=== PATIENT | female | born 1950 | race Caucasian/White ===

== ENCOUNTER 2020-01-08 20:52 | Inpatient (IN) | payer MEDICARE, SELFPAY ==
--- NOTE | ~2020-01-08 | CT_ITS ---
EXAMINATION: CT brain wo con DATE: 01/08/2020 22:24 INDICATION: Loss of balance. Fall. TECHNIQUE: Computed tomography (CT) of the head was performed without intravenous contrast. The mA wa s adjusted according to patient size. Iterative reconstruction technique was employed. The dose-lengt h product was 605.33 mGy-cm. COMPARISON: Brain MRI 02/07/2010 FINDINGS: There is no intracranial hemorrhage, acute infarction, or abnormal intracranial mass lesion . The ventricles are normal in size. The orbits are normal. There is mild mucosal thickening in the e thmoid sinuses. The mastoid air cells are normal. IMPRESSION: 1. Normal brain. Reviewed, dictated and finalized at location A. IMPRESSION: 1. Normal brain.
--- NOTE | ~2020-01-08 | XR_ITS ---
EXAMINATION: XR shoulder LT min 2V DATE: 01/10/2020 17:23 INDICATION: Left shoulder pain. Fall. TECHNIQUE: 4 views of left shoulder were obtained. COMPARISON: None. FINDINGS: Bone alignment is normal. No fracture. There is mild osteoarthritis of glenohumeral joint a nd acromioclavicular joint. IMPRESSION: 1. Mild polyarticular osteoarthritis. Reviewed, dictated and finalized at location A.
--- NOTE | ~2020-01-08 | XR_ITS ---
EXAMINATION: XR hip LT min 3V w AP pelvis DATE: 01/10/2020 17:23 INDICATION: Left hip pain. Fall. TECHNIQUE: An anteroposterior view of the pelvis and 3 views of left hip were obtained. COMPARISON: None. FINDINGS: Bone alignment is normal. No fracture. There is mild osteoarthritis of the hips. There is m ild lumbar spondylosis. IMPRESSION: 1. Mild osteoarthritis of the hips. Reviewed, dictated and finalized at location A.
[2020-01-08 20:55] VITALS: BP 137/68; PULSE 66; RESP 18; TEMP 36.6; O2SAT 99
[2020-01-08 21:11] LABS: Basophils Absolute Auto 0.1 K/mm3 (0.0-0.1); Basophils Percent Auto 0.9 % (0.2-1.2); Eosinophils Absolute Auto 0.2 K/mm3 (0-0.3); Eosinophils Percent Auto 3.7 % (0-4.4); Hematocrit 35.8 % (37.0-47.0); Hemoglobin 12.2 g/dL (12.0-15.0); Immature Granulocyte Absolute 0.02 K/mm3 (0.00-0.031); Immature Granulocyte Percent A 0.3 % (0-0.5); Lymphocytes Absolute Auto 1.88 K/mm3 (0.9-3.2); Lymphocytes Percent Auto 28.8 % (18.3-44.2); Mean Corpuscular HGB Conc 34.1 g/dl (32-36); Mean Corpuscular Hemoglobin 31.4 pg (26-34); Mean Corpuscular Volume 92.3 fl (80-100); Mean Platelet Volume 11.2 fl (7.4-10.4); Monocytes Absolute Auto 0.7 K/mm3 (0.1-0.6); Monocytes Percent Auto 10.1 % (2.6-8.5); Neutrophils Absolute Auto 3.7 K/mm3 (1.3-6.7); Neutrophils Percent Auto 56.2 % (45.5-73.1); Platelet Count Result 185 k/mm3 (150-375); Red Blood Count 3.88 M/mm3 (4.2-5.4); Red Cell Distribution Width 11.9 % (11.5-14.5); White Blood Count 6.5 K/mm3 (4.5-10.0)
[2020-01-08 21:23] LABS: Alanine Aminotransferase 38 U/L (4-35); Alkaline Phosphatase 93 U/L (38-126); Aspartate Amino Transferase 98 U/L (14-36); Bilirubin,Total 0.9 mg/dL (0.2-1.3); Blood Urea Nitrogen 32 mg/dL (7-17); Calcium 9.3 mg/dL (8.4-10.2); Carbon Dioxide 25 mmol/L (22-30); Chloride 101 mmol/L (98-107); Estimated CRCL calculation 71 ml/min; Estimated Glomerular Filt Rate > 60; Glucose 84 mg/dL (65-105); Potassium 3.3 mmol/L (3.4-5.0); Sodium 136 mmol/L (137-145)
--- NOTE | 2020-01-08 21:34 | ED.FALL ---
HPI - Fall General Chief Complaint: Fall Stated Complaint: fell Time Seen by Provider: 01/08/20 21:11 History of Present Illness HPI Narrative: Patient is a 69-year-old female who presents ER status post fall. Fell down last night and was not found until early this morning because she denied get herself up. She patient denies striking her head or losing consciousness. Patient is spastic/tremulous due to her Parkinson's disease. Patient also had some hallucinations that people in her house and called police. She is currently being treated for UTI by her primary care doctor at [facility]. Unsure of the name of the medication she is on. Related Data Home Medications Medication Instructions Recorded Confirmed carbidopa-levodopa 1 tablet PO DAILY 01/08/20 01/09/20 citalopram 40 mg PO DAILY 01/08/20 01/08/20 linaclotide [Linzess] 290 mcg PO DAILY 01/08/20 01/08/20 lorazepam 0.5 mg PO TID PRN 01/08/20 01/08/20 tramadol 1 mg PO BID PRN 01/08/20 01/08/20 trazodone 50 mg PO DAILY 01/08/20 01/08/20 trihexyphenidyl 2 mg PO BID 01/08/20 01/08/20 levothyroxine 50 mcg PO DAILY 01/09/20 01/09/20 Allergies Allergy/AdvReac Type Severity Reaction Status Date / Time hydrocodone Allergy Unknown Itching Verified 01/09/20 01:38 Review of Systems Review of Systems: All systems reviewed & are unremarkable except as noted in HPI and below Constitutional: Constitutional: Denies chills, Denies fever(s) and Denies weakness ENT: Denies nasal congestion and Denies sore throat Respiratory: Respiratory: Denies cough and Denies dyspnea Gastrointestinal: Gastrointestinal: Denies abdominal pain, Denies nausea and Denies vomiting Neurologic: Denies dizziness, Denies syncope, Denies headache(s), Denies focal weakness and Denies numbness PMF Social History Social History Years smoked: 2 Smoking status: Former smoker Alcohol intake: former Substance use: never Spiritual care concerns: No Course Course Emergency Course: Admit for observation and hydration. Vital Signs Vital signs: Vital Signs Temperature 97.9 F 01/08/20 20:55 Pulse Rate 66 01/08/20 20:55 Respiratory Rate 18 07/15/20 20:55 Blood Pressure 137/68 01/08/20 20:55 Pulse Oximetry 99 01/08/20 20:55 Temperature 97.8 F 01/09/20 05:48 Pulse Rate 58 L 01/09/20 05:48 Respiratory Rate 14 01/09/20 05:48 Blood Pressure 118/58 L 01/09/20 05:48 Pulse Oximetry 97 01/09/20 01:46 MDM - Fall Lab Data Result diagrams: 01/08/20 21:05 01/08/20 21:03 Labs: Lab Results 01/08/20 01/08/20 01/08/20 Range/Units 21:03 21:03 21:05 WBC 6.5 (4.5-10.0) K/mm3 RBC 3.88 L (4.2-5.4) M/mm3 Hgb 12.2 (12.0-15.0) g/dL Hct 35.8 L (37.0-47.0) % MCV 92.3 (80-100) fl MCH 31.4 (26-34) pg MCHC 34.1 (32-36) g/dl RDW 11.9 (11.5-14.5) % Plt Count 185 (150-375) k/mm3 MPV 11.2 H (7.4-10.4) fl Immature Gran % (Auto) 0.3 (0-0.5) % Neut % (Auto) 56.2 (45.5-73.1) % Lymph % (Auto) 28.8 (18.3-44.2) % Hancock % (Auto) 10.1 H (2.6-8.5) % Eos % (Auto) 3.7 (0-4.4) % Baso % (Auto) 0.9 (0.2-1.2) % Lymph # (Auto) 1.88 (0.9-3.2) K/mm3 Hancock # (Auto) 0.7 H (0.1-0.6) K/mm3 Eos # (Auto) 0.2 (0-0.3) K/mm3 Baso # (Auto) 0.1 (0.0-0.1) K/mm3 Abs Immat Gran (auto) 0.02 (0.00-0.031) K/mm3 Absolute Neuts (auto) 3.7 (1.3-6.7) K/mm3 Absolute Nucleated RBC 0.0 (0.0-0.012) K/mm3 Nucleated RBC % 0.0 (0.0-0.2) % Sodium 136 L (137-145) mmol/L Potassium 3.3 L (3.4-5.0) mmol/L Chloride 101 (98-107) mmol/L Carbon Dioxide 25 (22-30) mmol/L BUN 32 H (7-17) mg/dL Creatinine 0.60 L (0.7-1.0) mg/dL Estim Creat Clear Calc 71 ml/min Estimated GFR > 60 (59 - ) Glucose 84 (65-105) mg/dL Calcium 9.3 (8.4-10.2) mg/dL Total Bilirubin 0.9 (0.2-1.3) mg/dL AST 98 H (14-36) U/L ALT 38 H
[2020-01-08 22:02] LABS: Creatine Kinase 2469 U/L (30-135)
[2020-01-08 22:39] VITALS: BP 136/75; PULSE 63; RESP 18; O2SAT 99
[2020-01-08] MEDS: SODIUM CHLORIDE 0.9% IV 1,000 ML 999 ML IV CONT (22:39)
[2020-01-08 23:08] LABS: Add Urine Microscopic? YES; Appearance Urine Clear (Clear); Bilirubin Urine Negative (Negative); Blood Urine Negative (Negative); Color Urine Yellow (Yellow); Glucose Urine UA Negative (Negative); Ketones Urine 1+ mg/dL (Negative); Leukocyte Esterase Ur Negative LEU/UL (Negative); Mucus Urine Few /lpf; Nitrate Urine Negative (Negative); Protein Urine 1+ mg/dL (Negative); RBC Urine 0-2 /hpf (0-2); Squamous Epithelial Cell Urine Rare /hpf (Few); WBC Urine 0-3 /hpf
[2020-01-08 23:14] LABS: Specific Grav Ur 1.033 (1.001-1.035)
--- NOTE | 2020-01-08 23:34 | PC.NURSE ---
report taken from jose alfredo foster at this time.
[2020-01-08] MEDS: IBUPROFEN IV 800 MG/200 ML 800 MG/200 ML BAG 400 MG IVPB (23:46)
[2020-01-09 00:05] VITALS: BP 118/67; PULSE 65; RESP 18; O2SAT 100
[2020-01-09 00:44] VITALS: BP 121/64; PULSE 61; RESP 18; TEMP 36.3; O2SAT 100
[2020-01-09 01:18] VITALS: BMI 33.3
--- NOTE | 2020-01-09 01:25 | ADMGEN ---
This patient, Shanti Tapia, was admitted to 3 [facility] Surg Room 306-01. Patient/family oriented to hospital policies and general routines including ID bracelet, bed and alarms, visiting hours, pain management, procedures, bathroom and other care routines, personal items, smoking policy, room service/diet, and visiting hours. Valuables list has been completed. Information on how to activate the Rapid Response Team has been discussed. Patient/Family are encouraged to report perceived risks to care and to ask questions if they do not understand what they are told or what they should do.
[2020-01-09] MEDS: SODIUM CHLORIDE 0.9% IV 1,000 ML 125 ML IV CONT ×3 (01:39→17:42)
[2020-01-09 01:46] VITALS: BP 136/59; PULSE 61; RESP 18; TEMP 36.7; O2SAT 97
[2020-01-09 05:48] VITALS: BP 118/58; PULSE 58; RESP 14; TEMP 36.6
--- NOTE | 2020-01-09 10:41 | PM.IMHP ---
H&P: HPI History of Present Illness Chief complaint: rhabdomyolysis Narrative: Date of admission: 01/08/2020 Date of service: 01/09/2020 Shanti Tapia is a 69 year old female with a PMH significant for Parkinson's disease who presented to the emergency department on 01/08/2020 with complaints of hallucinations and a recent fall. On 01/06, the patient was in her bathroom attempting to put on her slippers when she lost her balance and fell on her bottom. She denied dizziness, lightheadedness, or any other warning symptoms prior to falling. After falling, she transition to her hands and knees and attempted to crawl to her bedroom, but she never made it as she was very weak. She estimates that she was on the ground for approximately 8 hours. A friend came to check on her because no one had heard from her, and at that time EMS was called. She went to [facility]. The only complaint she had was some scrapes on her knee and she had no other pain. She did not hit her head. She denies any headaches or confusion. Head CT performed at this facility was negative. This is her 2nd fall within approximately 1 week. She was discharged from the ER at [facility], and her friend brought her home. However, she had difficulty getting into her home because she had an episode of ?freezing in which she states her brain was telling her to move but her legs would not move. She states that this happens occasionally secondary to her Parkinson's. Her friend called EMS to help get the patient into her home. Several hours later, she reports an episode of hallucination in which she believes that her granddaughter was in her home. She was talking to her granddaughter who did not respond. This prompted her to call a family member to state that she was concerned someone was in her home. The police came to her home and stated no one was there, and encouraged her to be evaluated in the hospital. EMS was contacted again and brought her to this facility. She denies any history of visual or auditory hallucinations. She also notes that she has had ongoing issues with a UTI for approximately 1 month. She has been put on 2 courses of amoxicillin by her PCP. She still was having symptoms and she went to an urgent care on 12/28 and was started on Macrobid. She was again started on antibiotic on 01/07 at [facility], however she does not recall the name of this antibiotic. She states that her urine is rust colored and she endorses dysuria. She reports decreased urinary output the past 2 days. Urinalysis at this facility was negative for nitrates, leuk esterase, and WBC. Upon presentation, her CK was 2469. She feels much better at this time, however she still reports she is very weak and she had difficulty pulling herself up for my exam. Review of Systems Review of Systems: Narrative: A 12 point review of systems was reviewed with pertinent positives and negatives as per HPI. [facility] Past Medical History Medical History (Updated 01/09/20 @ 12:53 by Danni Roy PA-C) Chronic constipation Hypothyroidism Parkinson disease Surgical History Surgical History (Updated 01/09/20 @ 12:39 by Danni Roy PA-C) Hx of cholecystectomy Approx. 2009 Social History Social History (Updated 01/09/20 @ 12:41 by Danni Roy PA-C) Social History: The patient lives at home alone. She still drives and is independent with her ADLs. She is on disability secondary to Parkinson's disease. Her family history is unknown as she is adopted. She has 1 son who she no longer speaks to and 2 granddaughters to she does still have contact with. She designates her granddaughter, Nazia, as her surrogate decision maker and she wishes to be a DNR. Years smoked: 2 Smoking status: Former smoker Additional smoking assessment comments: She smoked 1 cigarette per day for 2 years, quit 10 years ago. Alcohol intake: current Alcohol use details: Drinks alcohol 2-3 times per ye
[2020-01-09] MEDS: ENOXAPARIN 40 MG/0.4 ML SYRINGE SUB-Q (11:52)
[2020-01-09] MEDS: CARBIDOPA/LEVODOPA 25/100 MG TABLET 1 TABLET PO (11:52)
[2020-01-09] MEDS: CITALOPRAM HYDROBROMIDE 20 MG TABLET 40 MG PO (11:52)
[2020-01-09 14:00] VITALS: BP 131/62; PULSE 72; RESP 20; TEMP 36.4; O2SAT 97
[2020-01-09] MEDS: ACETAMINOPHEN 325 MG TABLET 650 MG PO ×2 (14:48→22:21)
[2020-01-09] MEDS: TRIHEXYPHENIDYL HCL 2 MG TABLET PO (16:28)
[2020-01-09] MEDS: FAMOTIDINE 20 MG TABLET PO (20:59)
[2020-01-09] MEDS: DOCUSATE SODIUM 100 MG CAPSULE PO (20:59)
[2020-01-09 22:00] VITALS: BP 126/56; PULSE 58; RESP 20; TEMP 36.2; O2SAT 99
[2020-01-10] MEDS: SODIUM CHLORIDE 0.9% IV 1,000 ML 125 ML IV CONT (02:53)
[2020-01-10] MEDS: ACETAMINOPHEN 325 MG TABLET 650 MG PO ×3 (04:00→21:57)
[2020-01-10 06:00] VITALS: BP 132/63; PULSE 54; RESP 20; TEMP 36.7; O2SAT 97
[2020-01-10 06:41] LABS: Hematocrit 31.4 % (37.0-47.0); Hemoglobin 10.5 g/dL (12.0-15.0); Mean Corpuscular HGB Conc 33.4 g/dl (32-36); Mean Corpuscular Hemoglobin 30.7 pg (26-34); Mean Corpuscular Volume 91.8 fl (80-100); Mean Platelet Volume 11.6 fl (7.4-10.4); Platelet Count Result 161 k/mm3 (150-375); Red Blood Count 3.42 M/mm3 (4.2-5.4); Red Cell Distribution Width 11.8 % (11.5-14.5); White Blood Count 5.1 K/mm3 (4.5-10.0)
[2020-01-10 06:50] LABS: Alanine Aminotransferase 28 U/L (4-35); Albumin Level 2.9 g/dL (3.5-5.1); Alkaline Phosphatase 65 U/L (38-126); Aspartate Amino Transferase 69 U/L (14-36); Bilirubin,Total 0.4 mg/dL (0.2-1.3); Blood Urea Nitrogen 15 mg/dL (7-17); Calcium 8.1 mg/dL (8.4-10.2); Carbon Dioxide 23 mmol/L (22-30); Chloride 108 mmol/L (98-107); Creatine Kinase 1265 U/L (30-135); Estimated CRCL calculation 70 ml/min; Estimated Glomerular Filt Rate > 60; Glucose 87 mg/dL (65-105); Potassium 3.2 mmol/L (3.4-5.0); Sodium 136 mmol/L (137-145)
[2020-01-10] MEDS: LEVOTHYROXINE SODIUM 50 MCG TABLET PO (06:53)
[2020-01-10 06:57] LABS: NT Pro B Type Natriuretic Pept 648 PG/ML (5-100)
[2020-01-10] MEDS: POTASSIUM CHLORIDE 20 MEQ TABLET 40 MEQ PO (09:10)
[2020-01-10] MEDS: ENOXAPARIN 40 MG/0.4 ML SYRINGE SUB-Q (09:11)
[2020-01-10] MEDS: CITALOPRAM HYDROBROMIDE 20 MG TABLET 40 MG PO (09:11)
[2020-01-10] MEDS: polyethylene glycoL 3350 17 GM POWD.PACK PO ×2 (09:11→17:55)
[2020-01-10] MEDS: TRIHEXYPHENIDYL HCL 2 MG TABLET PO ×2 (09:11→17:55)
[2020-01-10] MEDS: CARBIDOPA/LEVODOPA 25/100 MG TABLET 1 TABLET PO (09:11)
[2020-01-10] MEDS: FAMOTIDINE 20 MG TABLET PO ×2 (09:11→21:56)
[2020-01-10] MEDS: DOCUSATE SODIUM 100 MG CAPSULE PO ×2 (09:11→21:56)
[2020-01-10] MEDS: SODIUM CHLORIDE 0.9% IV 1,000 ML 100 ML IV CONT ×2 (11:22→21:56)
[2020-01-10 14:00] VITALS: BP 133/59; PULSE 60; RESP 18; TEMP 36.7; O2SAT 99
[2020-01-10] MEDS: FUROSEMIDE INJ 40 MG/4 ML VIAL IV PUSH (14:26)
--- NOTE | 2020-01-10 14:29 | PM.IMPN ---
Progress Note: A&P Assessment and Plan (1) Rhabdomyolysis: Code(s): M62.82 - Rhabdomyolysis Status: Acute Assessment and Plan: Traumatic secondary to a fall. Patient was found on the ground after being down for approximately 8 hours. CK improved today to 1265, continue hydration and recheck in AM. Urine is clear today. Monitor I&Os. (2) Fall: Code(s): W19.XXXA - Unspecified fall, initial encounter Status: Acute Assessment and Plan: She had a mechanical fall secondary to loss of balance. Her head CT is normal. This is her 2nd fall within 1 week. Patient notes L hip and L shoulder pain, will obtain imaging this afternoon. Continue PT/OT; case management working on possible SNF. (3) Parkinson disease: Code(s): G20 - Parkinson's disease Status: Acute Assessment and Plan: Chronic and stable. She does have a resting tremor. Her Parkinson's may be progressing which could contribute to her weakness. Continue home sinemet and trihexyphenidyl. (4) Hallucination: Code(s): R44.3 - Hallucinations, unspecified Status: Acute Assessment and Plan: Patient had one episode of visual hallucination which she believed her granddaughter was in her home. She was talking with her granddaughter, but notes that no one answered her. She has good insight and is aware that this hallucination was not real. She denies any history of hallucinations. Her head CT was unremarkable. Suspect this may be secondary to her Parkinson's disease vs. delirium secondary to dehydration due to rhabdomyolysis. Will continue to monitor. (5) Hypothyroidism: Code(s): E03.9 - Hypothyroidism, unspecified Status: Chronic Assessment and Plan: Continue home levothyroxine. (6) Chronic constipation: Code(s): K59.09 - Other constipation Status: Acute Assessment and Plan: Chronic for many years, home Linzess is nonformulary. Last BM 3 days ago. Continue bowel regimen, increase miralax to BID and can use suppository or enema if needed. Subjective Date/time seen: 01/10/20 1330 Interval history: Ms. Tapia is a 69yo F admitted for rhabdomyolysis and weakness after a fall at home. She describes left hip pain and left shoulder pain today that began after her fall. She has been putting Bengay cream at the site of her hip pain at home, which seemed to relieve some discomfort. She reports feeling a bit stronger today with more energy. She denies chest pain or shortness of breath. She has tolerated oral intake without nausea or vomiting. Granddaughter Nazia is at the bedside during my evaluation. Review of Systems Review of Systems: Narrative: Twelve systems were reviewed with pertinent positives and negatives as per HPI. Exam Narrative: Exam Narrative: General: Female comfortably sitting up in bedside chair no acute distress. HEENT: Normocephalic, EOMI, oral mucosa moist. Cardiovascular: Rate and rhythm are regular. Respiratory: Lungs clear to auscultation all johnson. Non-labored breathing. Tolerating room air. Abdomen: Soft, non-tender, non-distended, bowel sounds present. Extremities: Peripheral pulses intact. 1+ edema KEVIN lower extremities below the knee. Neuro: No focal neurological deficits. Speech is clear. Objective Data Vital Signs Vital Signs: Last Vital Signs Temp 98.1 F 01/10/20 14:00 Pulse 60 01/10/20 14:00 Resp 18 01/10/20 14:00 BP 133/59 L 01/10/20 14:00 Pulse Ox 99 01/10/20 14:00 Intake/Output Intake/Output: Intake & Output 01/07/20 01/08/20 01/09/20 01/10/20 23:59 23:59 23:59 23:59 Intake Total 3885 2600 Output Total 001 376 6225 Balance -600 3485 1250 Meds/Results Medications: Active Medications Generic Name Dose Route St
[2020-01-10 14:35] LABS: SARS-CoV-2 RNA PCR Negative
[2020-01-10] MEDS: MENTHOL 10% / METHYL SALICYLATE 15% 57 GM TUBE 1 APPLIC TOPICAL ×2 (16:07→20:40)
[2020-01-10 21:13] VITALS: BP 135/59; PULSE 63; RESP 18; TEMP 36.9; O2SAT 93
--- NOTE | 2020-01-11 00:16 | PC.NURSE ---
211201/10/2020 Went to assess patient and give HS meds when pt requested to speak to heavy equipment plumbing supervisor. Explained this nurse is currently the charge nurse of the floor and offered to help pt in whatever she needs. Pt insistent on speaking to heavy equipment plumbing supervisor. Front Office Clerk Africa Mancini notified and went to see pt. Pt requests a different nurse due to feeling rushed. Front Office Clerk Africa Mancini explained that due to staffing limitations a new nurse could not be provided at the time; however the pt can request to have a different nurse in the future. This nurse administered scheduled medications and PRN Tylenol per pt request for hip pain without incidents. Was in pt room from [id number]. Pt was in no distress, positioned for comfort, call light in reach, bed alarm on Zone 2, bed low and locked with personal possession positioned by pt request. ~2300 01/10/2020 Pt placed call to 911 because she could not find her call light. Leigh WODOS called floor. Saurav Myles RN responded to call and found pt call light laying in the pt bed at her side. Nurse handed call light to pt. air cargo specialist supervisor Michelle Churchill notified. ~2310 01/10/2020 Pt placed an additional call to 911 saying she was hearing things in the hallway such as loud noises followed by silence and people walking in flip-flops and she felt unsafe. Leigh WOODS called floor. This RN went to reassure pt that she is safe and explained that she is close enough to the nurse's station that she may have heard us or housekeeping in the hallways. Pt insisting to speak to police. This RN called hospital security to try to reassure pt. ~2320 01/10/2020 Hospital security to see pt. Security was unable to make pt feel safe with same explanations offered for the noises. Pt continues to insist to speak to police. Attempted to call Ann GREENE listed to have her speak with pt. Left voicemail as no one answered. air cargo specialist supervisor Michelle Churchill notified. Michelle to come see pt. ~2330 01/10/2020 Front Office Clerk Michelle Churchill at bedside. Offers non-emergent police line. Officer agrees to come see pt. ~0000 01/11/2020 Leigh WOODS officer comes to see pt and reassure her of her safety. Explains that calling 911 in a non-emergency is considered a felony. Pt seems reassured and willing to try to sleep for the night. ~0010 01/11/2020 This RN adjusts lights for pt to sleep. Pt appears reassured of safety and is ready to try and sleep. Bed alarm on Zone 2. Call light on pt's lap. Personal possession positioned by pt request.
[2020-01-11] MEDS: MENTHOL 10% / METHYL SALICYLATE 15% 57 GM TUBE 1 APPLIC TOPICAL (04:45)
[2020-01-11] MEDS: traMADol HCL 50 MG TABLET PO (05:16)
[2020-01-11] MEDS: LEVOTHYROXINE SODIUM 50 MCG TABLET PO (05:16)
[2020-01-11 06:06] LABS: Basophils Absolute Auto 0.1 K/mm3 (0.0-0.1); Basophils Percent Auto 0.9 % (0.2-1.2); Eosinophils Absolute Auto 0.2 K/mm3 (0-0.3); Eosinophils Percent Auto 4.3 % (0-4.4); Hematocrit 33.3 % (37.0-47.0); Hemoglobin 11.3 g/dL (12.0-15.0); Immature Granulocyte Absolute 0.02 K/mm3 (0.00-0.031); Immature Granulocyte Percent A 0.4 % (0-0.5); Lymphocytes Absolute Auto 1.19 K/mm3 (0.9-3.2); Lymphocytes Percent Auto 22.3 % (18.3-44.2); Mean Corpuscular HGB Conc 33.9 g/dl (32-36); Mean Corpuscular Hemoglobin 30.9 pg (26-34); Mean Platelet Volume 11.3 fl (7.4-10.4); Monocytes Absolute Auto 0.5 K/mm3 (0.1-0.6); Neutrophils Absolute Auto 3.4 K/mm3 (1.3-6.7); Neutrophils Percent Auto 63.1 % (45.5-73.1); Platelet Count Result 155 k/mm3 (150-375); Red Blood Count 3.66 M/mm3 (4.2-5.4); Red Cell Distribution Width 11.8 % (11.5-14.5); White Blood Count 5.3 K/mm3 (4.5-10.0)
[2020-01-11 06:32] LABS: Alanine Aminotransferase 34 U/L (4-35); Albumin Level 3.2 g/dL (3.5-5.1); Alkaline Phosphatase 71 U/L (38-126); Aspartate Amino Transferase 69 U/L (14-36); Bilirubin,Total 0.6 mg/dL (0.2-1.3); Blood Urea Nitrogen 11 mg/dL (7-17); Calcium 8.6 mg/dL (8.4-10.2); Carbon Dioxide 25 mmol/L (22-30); Chloride 106 mmol/L (98-107); Creatine Kinase 996 U/L (30-135); Estimated CRCL calculation 82 ml/min; Estimated Glomerular Filt Rate > 60; Glucose 88 mg/dL (65-105); Magnesium 1.6 mg/dL (1.6-2.3); Potassium 3.5 mmol/L (3.4-5.0); Sodium 136 mmol/L (137-145)
[2020-01-11 06:56] VITALS: BP 135/62; PULSE 56; RESP 18; TEMP 36.4; O2SAT 96
[2020-01-11] MEDS: SODIUM CHLORIDE 0.9% IV 1,000 ML 100 ML IV CONT (08:10)
[2020-01-11] MEDS: CITALOPRAM HYDROBROMIDE 20 MG TABLET 40 MG PO (08:12)
[2020-01-11] MEDS: ENOXAPARIN 40 MG/0.4 ML SYRINGE SUB-Q (08:12)
[2020-01-11] MEDS: polyethylene glycoL 3350 17 GM POWD.PACK PO (08:13)
[2020-01-11] MEDS: FAMOTIDINE 20 MG TABLET PO (08:13)
[2020-01-11] MEDS: TRIHEXYPHENIDYL HCL 2 MG TABLET PO (08:13)
[2020-01-11] MEDS: DOCUSATE SODIUM 100 MG CAPSULE PO (08:13)
[2020-01-11] MEDS: CARBIDOPA/LEVODOPA 25/100 MG TABLET 1 TABLET PO (08:13)
[2020-01-11] MEDS: MAGNESIUM SULFATE 3GM/D5W100ML 3 GM/100 ML BAG IVPB (09:47)
--- NOTE | 2020-01-11 10:34 | PM.IMPN ---
Progress Note: A&P Assessment and Plan (1) Rhabdomyolysis: Code(s): M62.82 - Rhabdomyolysis Status: Acute Assessment and Plan: Traumatic secondary to a fall. Patient was found on the ground after being down for approximately 8 hours. CK improved today to 996. Urine is clear today. Monitor I&Os. (2) Fall: Code(s): W19.XXXA - Unspecified fall, initial encounter Status: Acute Assessment and Plan: She had a mechanical fall secondary to loss of balance. Her head CT is normal. This is her 2nd fall within 1 week. Patient notes L hip and L shoulder pain, will obtain imaging this afternoon. Continue PT/OT; waiting on insurance authorization for SNF. COVID test for dc planning is negative. (3) Parkinson disease: Code(s): G20 - Parkinson's disease Status: Chronic Assessment and Plan: Her Parkinson's may be progressing which could contribute to her weakness. Continue home sinemet and trihexyphenidyl. (4) Hallucination: Code(s): R44.3 - Hallucinations, unspecified Status: Resolved Assessment and Plan: No further incidence. Patient had one episode of visual hallucination which she believed her granddaughter was in her home. She was talking with her granddaughter, but notes that no one answered her. She has good insight and is aware that this hallucination was not real. She denies any history of hallucinations. Her head CT was unremarkable. Suspect this may be secondary to her Parkinson's disease vs. delirium secondary to dehydration due to rhabdomyolysis. Will continue to monitor. (5) Hypothyroidism: Code(s): E03.9 - Hypothyroidism, unspecified Status: Chronic Assessment and Plan: Continue home levothyroxine. (6) Chronic constipation: Code(s): K59.09 - Other constipation Status: Chronic Assessment and Plan: Chronic for many years, home Linzess is nonformulary. Had BM yesterday. Continue bowel regimen, increase miralax to BID and can use suppository or enema if needed. (7) Urinary retention: Code(s): R33.9 - Retention of urine, unspecified Status: Acute Subjective Date/time seen: 01/11/20 10:00 Interval history: Ms. Tapia is a 69yo F admitted for rhabdomyolysis and weakness after a fall at home. She reports feeling a little stronger with more energy today and offers no complaints. She tolerated some breakfast without nausea, vomiting or abdominal pain. She denies chest pain or shortness of breath. Had a BM last night. Review of Systems Review of Systems: Narrative: Twelve systems were reviewed with pertinent positives and negatives as per HPI. Exam Narrative: Exam Narrative: General: Female comfortably sitting up in bedside chair no acute distress. HEENT: Normocephalic, EOMI, oral mucosa moist. Cardiovascular: Rate and rhythm are regular. Respiratory: Lungs clear to auscultation all johnson. Non-labored breathing. Tolerating room air. Abdomen: Soft, non-tender, non-distended, bowel sounds present. Extremities: Peripheral pulses intact. Trace edema KEVIN lower extremities below the knee, no erythema or pain to palpation. Neuro: No focal neurological deficits. Speech is clear. Urinary catheter patent and draining clear yellow urine. Objective Data Vital Signs Vital Signs: Last Vital Signs Temp 97.5 F L 01/11/20 06:56 Pulse 56 L 01/11/20 06:56 Resp 18 01/11/20 06:56 BP 135/62 01/11/20 06:56 Pulse Ox 96 01/11/20 06:56 Intake/Output Intake/Output: Intake & Output 01/08/20 01/09/20 01/10/20 01/11/20 23:59 23:59 23:59 23:59 Intake Total 3885 4765 1320 Output Total 911 031 9794 600 Balance -600 3485 940 720 Meds/Results Medications: Active Medications Generic Name Dose Route Start Last
--- NOTE | 2020-01-11 15:41 | PM.DS ---
DS: Admitting Diagnosis Admitting Diagnosis Admitting Diagnosis: Rhabdomyolysis DS: Discharge Diagnosis Discharge Diagnosis (1) Rhabdomyolysis: Code(s): M62.82 - Rhabdomyolysis Status: Acute Assessment and Plan: Traumatic secondary to a fall. Patient was found on the ground after being down for approximately 8 hours. CK improved with IV fluids. (2) Fall: Code(s): W19.XXXA - Unspecified fall, initial encounter Status: Acute Assessment and Plan: She had a mechanical fall secondary to loss of balance. Her head CT is normal. This is her 2nd fall within 1 week. Patient notes L hip and L shoulder pain, imaging shows no acute fractures. Continue PT/OT, discharged to SNF. COVID test for dc planning is negative. (3) Parkinson disease: Code(s): G20 - Parkinson's disease Status: Chronic Assessment and Plan: Her Parkinson's may be progressing which could contribute to her weakness. Continue home sinemet and trihexyphenidyl. (4) Hallucination: Code(s): R44.3 - Hallucinations, unspecified Status: Resolved Assessment and Plan: No further incidence. Patient had one episode of visual hallucination which she believed her granddaughter was in her home. She was talking with her granddaughter, but notes that no one answered her. She has good insight and is aware that this hallucination was not real. She denies any history of hallucinations. Her head CT was unremarkable. Suspect this may be secondary to her Parkinson's disease vs. delirium secondary to dehydration due to rhabdomyolysis. Follow up with PCP and her neurologist if further issues occur. (5) Hypothyroidism: Code(s): E03.9 - Hypothyroidism, unspecified Status: Chronic Assessment and Plan: Continue home levothyroxine. (6) Chronic constipation: Code(s): K59.09 - Other constipation Status: Chronic Assessment and Plan: Chronic for many years, takes Linzess. Had BM during this admission. (7) Urinary retention: Code(s): R33.9 - Retention of urine, unspecified Status: Acute Assessment and Plan: Urinary flores catheter initiated. Recommend snf attempt voiding trial within 1 week and encourage fluid intake. DS: Summary Hospital Course Hospital Course: Date of Service 01/11/20 Ms. Tapia is a 69yo F with history of Parkinson's, hypothyroidism, and chronic constipation who presented to the ED for evaluation after a fall at home. Her main complaint on arrival was a visual hallucination she had prior to arrival, when she thought her granddaughter was in the kitchen when really no one was home. Earlier in the week, she had fallen and estimated she was on the ground around 8 hours, at which time she presented to [facility] in [place] and was discharged from ED. She was treated here for rhabdomyolysis. CK was elevated here to 2469 and improved with IV hydration. Renal function was stable. Urinary retention was noted and urinary catheter was initiated. Recommend NH attempt voiding trial this week. She worked with PT/OT and was hemodynamically stable for discharge to SNF 01/11/20. COVID testing for discharge planning was negative. Time Spent with Patient Time attestation: Total time spent providing and/or coordinating discharge services: 35 minutes Exam Narrative: Exam Narrative: General: Female comfortably sitting up in bedside chair no acute distress. HEENT: Normocephalic, EOMI, oral mucosa moist. Cardiovascular: Rate and rhythm are regular. Respiratory: Lungs clear to auscultation all johnson. Non-labored breathing. Tolerating room air. Abdomen: Soft, non-tender, non-distended, bowel sounds present. Extremities: Peripheral pulses intact. Trace edema KEVIN lower extremi
== END 2020-01-11 13:20 | DRG 558 ==
LOC: ANHED 23:24 → ANH3MEDSUR 01-09 00:18
PROVIDERS: Emergency Medicine; Family Medicine; Physician Assistant; Admitting Provider Internal Medicine; Emergency Provider Emergency Medicine; Visit Provider Physician Assistant
DX: M62.82 Rhabdomyolysis (principal); N39.0 Urinary tract infection, site not specified; R44.3 Hallucinations, unspecified; G20 Parkinson's disease; Z11.59 Encounter for screening for other viral diseases; Z91.81 History of falling; E03.9 Hypothyroidism, unspecified; K59.00 Constipation, unspecified; Z87.891 Personal history of nicotine dependence; R33.9 Retention of urine, unspecified; R29.6 Repeated falls
CPT/HCPCS: 36415; 51701; 70450; 73030; 73502; 80053; 81001; 82550; 83735; 83880; 84443; 85025; 85027; 87635; 96361; 96365; 96372; 97110; 97116; 97161; 97165; 97530; 97535; 99285; A9270; C9803; G0378; J1650; J1741; J1940; J3475; J7030; U0003

== ENCOUNTER 2020-01-16 14:30 | Emergency (ER) | payer MEDICARE, SELFPAY ==
--- NOTE | ~2020-01-16 | US_ITS ---
EXAMINATION: US venous doppler [facility] EXAM DATE: 01/16/2020 15:26 INDICATION: Left leg swelling. TECHNIQUE: Multiple grayscale, color flow and Doppler images of the left lower extremity deep venous system obtained and reviewed. There is no prior study for comparison. FINDINGS: LEFT SIDE Common femoral: -------- Normal. Profunda femoral: ------- Normal. Femoral: Normal. Popliteal: Normal. Posterior tibial: ---------Paired, both thrombosed. Peroneal: Paired, both thrombosed. Gastrocnemius: Not visualized. Soleus: Not visualized. Greater saphenous: ----- Normal. Lesser saphenous: ------Thrombosed. IMPRESSION: Positive for left calf DVT. Reviewed, dictated and finalized at location A. IMPRESSION: Positive for left calf DVT.
[2020-01-16 14:31] VITALS: BP 139/80; PULSE 65; RESP 19; TEMP 37; O2SAT 99
[2020-01-16 14:38] VITALS: BP 139/80; PULSE 63; RESP 19; TEMP 37; O2SAT 98
--- NOTE | 2020-01-16 14:52 | ED.EXTPRO ---
HPI - Extremity Problem General Chief complaint: Extremity Problem,Nontraumatic Stated complaint: wanting ultra sound Time Seen by Provider: 01/16/20 14:33 History of Present Illness HPI Narrative: Patient sent from the skilled nursing for a sore left leg. A week ago she was admitted for rhabdomyolysis and then sent to the skilled nursing. She complains of pain behind her left knee and into the thigh up to her panty line. She gives it a 3 out of 10. She was sent to check blood flow, by Dr. Stark. He denies any other illness or discomfort. He has Parkinson's disease. He does not smoke, drink alcohol, or do drugs. MD Complaint: extremity pain and extremity swelling Onset (ago): day(s) Pain Consistency: constant Location: left Severity scale (1-10): 3 Related Data Home Medications Medication Instructions Recorded Confirmed Linzess 290 mcg PO DAILY 01/08/20 01/08/20 carbidopa-levodopa 1 tablet PO DAILY 01/08/20 01/09/20 citalopram 40 mg PO DAILY 01/08/20 01/08/20 trazodone 50 mg PO DAILY 01/08/20 01/08/20 trihexyphenidyl 2 mg PO BID 01/08/20 01/08/20 levothyroxine 50 mcg PO DAILY 01/09/20 01/09/20 docusate sodium [Colace] 100 mg PO DAILY 01/16/20 fexofenadine [Yomaira Allergy] 180 mg PO DAILY 01/16/20 tuberculin PPD [Tubersol] 5 unit INTRADERMAL ONCE 01/16/20 Allergies Allergy/AdvReac Type Severity Reaction Status Date / Time hydrocodone Allergy Unknown Itching Verified 01/16/20 14:39 Review of Systems Review of Systems: Narrative: CONSTITUTIONAL: Denies fever, chills, or sweats. EYES: Denies visual changes, redness, or discharge. ENT: Denies rhinorrhea, congestion, sore throat, or otalgia. CARDIOVASCULAR: Denies chest pain, palpitations, or edema. RESPIRATORY: Denies cough or dyspnea. GASTROINTESTINAL: Denies abdominal pain, nausea, vomiting, or diarrhea. GENITOURINARY: Denies dysuria or hematuria. SKIN: Denies rash or itching. MUSCULOSKELETAL: Denies back pain, but has left knee pain left thigh pain left groin pain. NEUROLOGIC: Denies headache, numbness, or weakness. . All systems reviewed & are unremarkable except as noted in HPI and below PMFSH Past Medical History Medical History Chronic constipation Hypothyroidism Parkinson disease Surgical History Surgical History Hx of cholecystectomy Approx. 2010 Social History Social History Social History: The patient lives at home alone. She still drives and is independent with her ADLs. She is on disability secondary to Parkinson's disease. Her family history is unknown as she is adopted. She has 1 son who she no longer speaks to and 2 granddaughters to she does still have contact with. She designates her granddaughter, Nazia, as her surrogate decision maker and she wishes to be a DNR. Years smoked: 2 Smoking status: Former smoker Additional smoking assessment comments: She smoked 1 cigarette per day for 2 years, quit 10 years ago. Alcohol intake: current Substance use: never Gender identity (if verbalized by the patient): Female Sexual Orientation (if Verbalized by the Patient): Straight or Heterosexual Spiritual care concerns: No Exam Narrative: Exam Narrative: GENERAL: Well-appearing, well-nourished, and in no acute distress. HEAD: Normocephalic, atraumatic. EYES: PERRLA and EOMI. ENT: Nares clear, no rhinorrhea or epistaxis. Mucous membranes moist. NECK: Supple. CHEST: Clear to auscultation. No respiratory distress. HEART: Regular rate and rhythm. No murmur heard. Normal peripheral pulses. ABDOMEN: Soft, nontender, nondistended, normal active bowel sounds. EXTREMITIES: Normal range of motion. Both legs equally swollen. Right leg is longer. SKIN: Warm, dry, no rash. NEURO: No focal deficits. Alert and oriented x3. PSYCH: Normal mood and affect. Course Reevaluation(s) Re
[2020-01-16] MEDS: ACETAMINOPHEN 325 MG TABLET 650 MG PO (14:59)
[2020-01-16] MEDS: IBUPROFEN 400 MG TABLET PO (15:00)
[2020-01-16 15:03] LABS: Basophils Absolute Auto 0.1 K/mm3 (0.0-0.1); Basophils Percent Auto 0.7 % (0.2-1.2); Eosinophils Absolute Auto 0.3 K/mm3 (0-0.3); Eosinophils Percent Auto 4.2 % (0-4.4); Hematocrit 38.3 % (37.0-47.0); Hemoglobin 12.6 g/dL (12.0-15.0); Immature Granulocyte Absolute 0.01 K/mm3 (0.00-0.031); Immature Granulocyte Percent A 0.1 % (0-0.5); Lymphocytes Absolute Auto 1.38 K/mm3 (0.9-3.2); Lymphocytes Percent Auto 17.1 % (18.3-44.2); Mean Corpuscular HGB Conc 32.9 g/dl (32-36); Mean Corpuscular Hemoglobin 31.3 pg (26-34); Mean Corpuscular Volume 95.3 fl (80-100); Mean Platelet Volume 11.4 fl (7.4-10.4); Monocytes Absolute Auto 0.7 K/mm3 (0.1-0.6); Monocytes Percent Auto 8.7 % (2.6-8.5); Neutrophils Absolute Auto 5.6 K/mm3 (1.3-6.7); Neutrophils Percent Auto 69.2 % (45.5-73.1); Platelet Count Result 191 k/mm3 (150-375); Red Blood Count 4.02 M/mm3 (4.2-5.4); Red Cell Distribution Width 12.6 % (11.5-14.5); White Blood Count 8.1 K/mm3 (4.5-10.0)
[2020-01-16 15:20] LABS: Prothrombin Time 12.4 Seconds (11.1-14.7)
[2020-01-16 15:36] LABS: D Dimer 10.78 ug/mL (<0.48)
[2020-01-16 16:08] LABS: Alanine Aminotransferase 50 U/L (4-35); Albumin Level 3.6 g/dL (3.5-5.1); Alkaline Phosphatase 84 U/L (38-126); Anion Gap 9.2 mmol/L (7-16); Aspartate Amino Transferase 42 U/L (14-36); Bilirubin,Total 0.5 mg/dL (0.2-1.3); Blood Urea Nitrogen 14 mg/dL (7-17); Calcium 8.8 mg/dL (8.4-10.2); Carbon Dioxide 30 mmol/L (22-30); Chloride 98 mmol/L (98-107); Estimated CRCL calculation 62 ml/min; Estimated Glomerular Filt Rate > 60; Glucose 95 mg/dL (65-105); Potassium 4.2 mmol/L (3.4-5.0); Sodium 133 mmol/L (137-145)
[2020-01-16 16:17] LABS: NT Pro B Type Natriuretic Pept 393 PG/ML (5-100)
[2020-01-16] MEDS: APIXABAN 5 MG TABLET PO (17:00)
[2020-01-16 17:01] VITALS: BP 139/80; PULSE 64; RESP 16; O2SAT 100
== END 2020-01-16 17:47 ==
PROVIDERS: Emergency Provider Emergency Medicine; PCP Physician Assistant
DX: I82.442 Acute embolism and thrombosis of left tibial vein (principal); I82.452 Acute embolism and thrombosis of left peroneal vein; I82.492 Acute embolism and thrombosis of other specified deep vein of left lower extremity; R94.5 Abnormal results of liver function studies; G20 Parkinson's disease; E03.9 Hypothyroidism, unspecified; Z87.891 Personal history of nicotine dependence
CPT/HCPCS: 36415; 80053; 83880; 85025; 85380; 85610; 93971; 99284; A9270

== ENCOUNTER 2020-02-17 13:33 | Observation (INO) | payer MEDICARE, SELFPAY ==
--- NOTE | ~2020-02-17 | XR_ITS ---
EXAMINATION: XR chest 1V DATE: 02/17/2020 14:48 INDICATION: Pedal edema. TECHNIQUE: A single frontal view of the chest was obtained. COMPARISON: CT abdomen 08/15/2008 FINDINGS: There is mild atelectasis at left lung base. A calcified left lung nodule and calcified lef t hilar lymph nodes are consistent with old granulomatous disease. No pleural effusion or pneumothora x. The heart size is normal. Surgical clips in the right upper quadrant are likely from cholecystecto my. IMPRESSION: 1. Mild atelectasis at left lung base. Reviewed, dictated and finalized at location B.
--- NOTE | ~2020-02-17 | US_ITS ---
EXAMINATION: US venous doppler [facility] EXAM DATE: 02/18/2020 11:45 INDICATION: DVT. TECHNIQUE: Multiple grayscale, color flow and Doppler images of the left lower extremity deep venous system were obtained and reviewed. Comparison is made to prior examination from 01/16/2020. FINDINGS: The left common femoral, femoral and profunda veins demonstrate normal color flow, respirat ory variation, augmentation and compressibility. Compressibility, color flow confirmed within the le ft popliteal, posterior tibial, peroneal, and greater saphenous veins. IMPRESSION: Resolution of previously seen left lower extremity DVT. Reviewed, dictated and finalized at location A.
--- NOTE | ~2020-02-17 | CT_ITS ---
EXAMINATION: CT brain wo con DATE: 02/17/2020 14:42 INDICATION: Fall with head injury TECHNIQUE: Computed tomography (CT) of the head was performed without intravenous contrast. Sagittal and coronal reconstructions were performed. The mA was adjusted according to patient size. Iterative reconstruction technique was employed. The dose-length product was 529.67 mGy-cm. COMPARISON: head CT dated 01/08/20 FINDINGS: No fracture. No acute intracranial hemorrhage, acute infarction or abnormal extra axial fluid collect ion. Ventricles are normal and symmetric. No mass/mass effect. The orbits, paranasal sinuses and mast oid air cells are normal. IMPRESSION: 1. No fracture or acute intracranial process. Reviewed, dictated and finalized at location A.
--- NOTE | ~2020-02-17 | CT_ITS ---
EXAMINATION: CT cervical spine wo con DATE: 02/17/2020 14:43 INDICATION: Fall with head injury TECHNIQUE: Computed tomography (CT) of the cervical spine was performed without intravenous contrast. Automated exposure control and iterative reconstruction technique were employed. The dose-length pro duct was 256.87 mGy-cm. COMPARISON: None FINDINGS: Mild cervical levocurvature. Straightening of the normal cervical lordosis and 2 mm anterolisthesis o f C4 on C5. Vertebral body heights are normal. No fracture. Severe disc height loss at C5-C6, moderat e disc height loss at C6-C7 and mild disc height loss at C2-C3 and C4-C5. Bilateral atherosclerotic c oronary artery calcifications. Cervical soft tissues are unremarkable. Visualized airway and apices o f the lungs are clear. The following disc levels are specifically discussed: C2-C3: The disc does not extend beyond the endplate margin. There is minimal bilateral uncovertebral joint osteoarthritis. There is moderate left and severe right facet joint osteoarthritis. There is mi ld left and moderate right neural foraminal stenosis. There is no central canal stenosis. C3-C4: Disc is mildly bulging. There is mild bilateral uncovertebral joint osteoarthritis. There is m oderate right and severe left facet joint osteoarthritis. There is mild bilateral neural foraminal st enosis. There is mild central canal stenosis. C4-C5: Disc is bulging. There is mild to moderate left-sided and severe right-sided uncovertebral naima nt osteoarthritis. There is mild left and severe right facet joint osteoarthritis. There is moderate right neural foraminal stenosis. There is mild central canal stenosis. C5-C6: Posterior disc osteophyte complex. There is severe bilateral uncovertebral joint osteoarthriti s. There is moderate bilateral facet joint osteoarthritis. There is mild to moderate bilateral neural foraminal stenosis. There is mild to moderate central canal stenosis. C6-C7: Disc is bulging. There is moderate right and severe left uncovertebral joint osteoarthritis. T here is moderate bilateral facet joint osteoarthritis. There is mild right and mild to moderate left neural foraminal stenosis. There is mild central canal stenosis. C7-T1: The disc does not extend beyond the endplate margin. There is minimal bilateral uncovertebral joint osteoarthritis. There is moderate bilateral facet joint osteoarthritis. There is no neural fora ciro stenosis. There is no central canal stenosis. IMPRESSION: 1. Moderate to severe cervical spondylosis. No acute osseous abnormality. Reviewed, dictated and finalized at location A.
[2020-02-17 13:40] VITALS: BP 115/61; PULSE 61; RESP 18; TEMP 36.7; O2SAT 97
--- NOTE | 2020-02-17 14:01 | ECG_ITS ---
Measurements Intervals [place] Rate: 64 P: AK: 0 QRS: 74 QRSD: 83 T: 29 QT: 405 QTc: 418 Interpretive Statements SINUS RHYTHM BORDERLINE ST-T WAVE ABNORMALITY- ANT/INF LEADS BASELINE ARTIFACT- I, II ,III, AVR, AVL, AVF, V1 BORDERLINE ECG Electronically Signed On 02-17-2020 15:17:43 CDT by Cesar Smith D.O.
--- NOTE | 2020-02-17 14:11 | ED.GENADULT ---
HPI - General Adult General Chief complaint: Head Injury Stated complaint: FALL, CONFUSION, WEAK Time Seen by Provider: 02/17/20 14:02 Source: patient and family History of Present Illness HPI narrative: Patient is a 69 y/o female complaining severe hallucinations. She states that she is seeing people in her house. She lives alone. This has been going for a few weeks, but it's worse since she had the fall and hit her head 2 days ago. She states that she fell backwards and hit the back of her head. She denies any LOC. She has no focal weakness or numbness. Related Data Home Medications Medication Instructions Recorded Confirmed Unable to Obtain Home Medications 02/17/20 02/17/20 Allergies Allergy/AdvReac Type Severity Reaction Status Date / Time hydrocodone Allergy Unknown Itching Verified 02/17/20 13:36 Review of Systems Constitutional: Constitutional: Denies chills, Denies fever(s), Denies headache(s) and Denies weakness Eyes: Eyes: Denies blurry vision ENT: Denies headache(s) and Denies neck pain Cardiovascular: Cardiovascular: Denies chest pain and Denies dyspnea Respiratory: Respiratory: Denies cough and Denies dyspnea Gastrointestinal: Gastrointestinal: Denies abdominal pain, Denies diarrhea, Denies nausea and Denies vomiting Genitourinary: Genitourinary: Denies hematuria and Denies dysuria Musculoskeletal: Musculoskeletal: Denies back pain and Denies neck pain Neurologic: Denies headache(s) and Denies weakness Psychiatric: Psychiatric: Reports as per HPI and Reports other (hallucination) [facility] Past Medical History Medical History Chronic constipation Hypothyroidism Parkinson disease Surgical History Surgical History Hx of cholecystectomy Approx. 2009 Family History Family History Other Adopted Social History Social History Social History: The patient lives at home alone. She still drives and is independent with her ADLs. She is on disability secondary to Parkinson's disease. Her family history is unknown as she is adopted. She has 1 son who she no longer speaks to and 2 granddaughters to she does still have contact with. She designates her granddaughter, Nazia, as her surrogate decision maker and she wishes to be a DNR. Years smoked: 2 Smoking status: Former smoker Additional smoking assessment comments: She smoked 1 cigarette per day for 2 years, quit 10 years ago. Alcohol intake: current Substance use: never Gender identity (if verbalized by the patient): Female Spiritual care concerns: No Exam Const: General: no acute distress and well developed Orientation/consciousness: oriented to person, oriented to place, oriented to time and patient oriented x3 HENMT: Head: normocephalic Ears: external ears normal General nose exam: Normal external nose present Eyes: General: appearance normal, both eyes and all related structures Conjunctivae: conjunctivae normal Neck: Neck: normal visual inspection and full ROM Chest: Chest palpation & inspection: normal inspection of the chest and no tenderness Resp: Effort & Inspection: normal respiratory effort Auscultation: clear to auscultation bilaterally Cardio: Rate: regular rate Rhythm: regular rhythm GI: GI Palp: No abdominal tenderness and Yes Soft to palpation Skin: General skin exam: normal color and turgor normal Neuro: General: oriented to person, oriented to place, oriented to time and patient oriented x3 Cognition (Neuro): normal cognition Speech: normal speech Motor exam (neuro): 5/5 motor strength present throughout Sensory Exam: normal sensation Extrem: General: normal to inspection, full ROM and no pedal edema Psych: Appearance: grossly normal Mental Status: mental status grossly normal Af
[2020-02-17 14:15] LABS: Basophils Percent Auto 0.9 % (0.2-1.2); Eosinophils Absolute Auto 0.2 K/mm3 (0-0.3); Eosinophils Percent Auto 4.7 % (0-4.4); Hematocrit 34.3 % (37.0-47.0); Hemoglobin 11.3 g/dL (12.0-15.0); Lymphocytes Absolute Auto 1.32 K/mm3 (0.9-3.2); Lymphocytes Percent Auto 29.5 % (18.3-44.2); Mean Corpuscular HGB Conc 32.9 g/dl (32-36); Mean Corpuscular Hemoglobin 31.1 pg (26-34); Mean Corpuscular Volume 94.5 fl (80-100); Mean Platelet Volume 11.5 fl (7.4-10.4); Monocytes Absolute Auto 0.5 K/mm3 (0.1-0.6); Monocytes Percent Auto 12.1 % (2.6-8.5); Neutrophils Absolute Auto 2.4 K/mm3 (1.3-6.7); Neutrophils Percent Auto 52.8 % (45.5-73.1); Platelet Count Result 216 k/mm3 (150-375); Red Blood Count 3.63 M/mm3 (4.2-5.4); Red Cell Distribution Width 12.7 % (11.5-14.5); White Blood Count 4.5 K/mm3 (4.5-10.0)
[2020-02-17 14:23] LABS: INR 1.1
[2020-02-17 14:24] LABS: Partial Thromboplastin Time 24.7 SECONDS (22.3-36.8)
[2020-02-17 14:26] LABS: Anion Gap 6 mmol/L (8-16); Blood Urea Nitrogen 25 mg/dL (7-17); Calcium 9.2 mg/dL (8.4-10.2); Carbon Dioxide 29 mmol/L (22-30); Chloride 103 mmol/L (98-107); Estimated Glomerular Filt Rate > 60; Glucose 100 mg/dL (65-105); Potassium 3.6 mmol/L (3.4-5.0); Sodium 138 mmol/L (137-145)
[2020-02-17 14:38] LABS: NT Pro B Type Natriuretic Pept 216 PG/ML (5-100); Troponin I < 0.012 ng/mL (0.000-0.034)
[2020-02-17 17:20] VITALS: BP 109/63; PULSE 72; RESP 20
[2020-02-17 18:54] VITALS: BP 119/58; PULSE 73; RESP 21; O2SAT 96
--- NOTE | 2020-02-17 19:17 | PCCCNOTE ---
Lists of Assisted Living and SNFs provided to granddaughter and patient. Patient wants to stay at home and does not want to go into either Assisting Living or a SSNF. Granddaughter (POW) has had caregiver arranged but is not at the home 24 hours/day. Pt frances hallucinations at times and has had multiple falls. Pt admits that the falls come when she does not use her walker.
[2020-02-17 20:00] VITALS: BP 104/51; PULSE 60; RESP 20; TEMP 36.4; O2SAT 97
--- NOTE | 2020-02-17 21:00 | ADMGEN ---
This patient, Shanti Tapia, was admitted to 2 Medical Room 255-. Patient/family oriented to hospital policies and general routines including ID bracelet, bed and alarms, visiting hours, pain management, procedures, bathroom and other care routines, personal items, smoking policy, room service/diet, and visiting hours. Valuables list has been completed. Information on how to activate the Rapid Response Team has been discussed. Patient/Family are encouraged to report perceived risks to care and to ask questions if they do not understand what they are told or what they should do.
[2020-02-17 21:10] VITALS: BP 122/78; PULSE 76; RESP 20; O2SAT 99
[2020-02-17 21:27] VITALS: BMI 31.2
--- NOTE | 2020-02-17 23:45 | PM.IMHP ---
H&P: HPI History of Present Illness Date/Time: 02/18/20 00:30 Chief complaint: fall, hallucination Narrative: Shanti Tapia is a 69 year old female with a past Parkinson's and medication non adherence who presented to the ER 2 days after fall due to increased hallucinations. Source of information is ER records and patient report. The patient is a poor historian and is being uncooperative with history process that she keeps demanding that the ER told her that if she could urinate on her own she could be discharged home. The patient had evidently fallen 2 days ago and hit her head. She fell backwards and hit the back of her head but did not lose consciousness. She has not been having any weakness or numbness. She has been having hallucinations. She evidently does have hallucinations at baseline but they have been more numerous and disturbing. The patient lives alone in her own home . But she is seeing people that are not there. When she arrived to the medical floor she was reporting that she was no longer having hallucinations. Family told nursing staff that the patient is noncompliant with her home medications and has not been taking her Parkinson's meds. The patient has been having multiple falls at home per family report. The patient herself denies this. Evidently while the patient was hospitalized previously she called the breakfast cook multiple times while she was hospitalized. Nursing staff reports that as the evening has went on the patient has become more uncooperative. The patient is telling me that she will never come to this hospital again. She is requesting that she could get to call her daughter. She repeatedly states that she needs to urinate but has been unable to void when a bedpan has been provided. I asked nursing staff to bladder scan the patient the patient was holding 281 mL of urine but patient refuses straight cath. The patient keeps stating that the nursing staff told her that if she could get her covers off of her that she would be allowed to get up and go to the bathroom. the patient was evaluated in the ER on 01/16/2020. The patient was recommended to start on Eliquis. However I do not have documentation that the patient was actually discharged from the ER with an Eliquis prescription. The patient's family member is pretty sure that the patient has not been taking any blood thinners. Review of Systems Review of Systems: Narrative: Limited as the patient is being uncooperative. She is upset that will not let her leave the hospital in the middle of the night to go home. [facility] Past Medical History Medical History (Updated 02/17/20 @ 23:57 by Radha Cordoba DO) Chronic constipation DVT (deep venous thrombosis) leftperoneal and posterior tibial DVT 01/16/2020 Hypothyroidism Parkinson disease With chronic hallucinations Rhabdomyolysis December 2019 Surgical History Surgical History (Updated 02/17/20 @ 23:49 by Radha Cordoba DO) Hx of cholecystectomy 2002 Family History Family History Other Adopted Social History Social History Social History: The patient lives at home alone. She still drives and is independent with her ADLs. She is on disability secondary to Parkinson's disease. Her family history is unknown as she is adopted. She has 1 son who she no longer speaks to and 2 granddaughters to she does still have contact with. She designates her granddaughter, Nazia, as her surrogate decision maker and she wishes to be a DNR. Years smoked: 2 Smoking status: Former smoker Second hand tobacco smoke exposure: Yes Additional smoking assessment comments: She smoked 1 cigarette per day for 2 years, quit 10 years ago. Alcohol intake: never Substance use: never Substance use type: does not use Gender identity (if verbalized by the patient): Female Spiritual care concerns: No
[2020-02-17] MEDS: ACETAMINOPHEN 325 MG TABLET 650 MG PO (23:50)
[2020-02-18] VITALS: BP 104/51; PULSE 60; RESP 20; TEMP 36.4; O2SAT 92
[2020-02-18] MEDS: ENOXAPARIN 80 MG/0.8 ML SYRINGE 75 MG SUB-Q (01:04)
[2020-02-18 04:00] VITALS: BP 105/77; PULSE 60; RESP 20; TEMP 36.4; O2SAT 97
--- NOTE | 2020-02-18 05:20 | PC.NURSE ---
Pt is paranoid and thinks that staff if holding her against her will. Pt is unable to ambulate and family is aware that she is here. Pt is refusing care and vital signs. Dr Cordoba is aware.
[2020-02-18] MEDS: LEVOTHYROXINE SODIUM 50 MCG TABLET PO (05:34)
[2020-02-18] MEDS: ACETAMINOPHEN 325 MG TABLET 650 MG PO ×2 (06:14→23:19)
[2020-02-18] MEDS: CARBIDOPA/LEVODOPA 12.5/50 MG TABLET 1 TABLET PO ×4 (08:58→21:28)
[2020-02-18] MEDS: CARBIDOPA/LEVODOPA 25/100 MG TABLET 1 TABLET PO ×4 (08:58→21:29)
[2020-02-18 10:00] VITALS: BP 115/60; PULSE 64; RESP 19; TEMP 36.4; O2SAT 97
--- NOTE | 2020-02-18 10:17 | PM.IMPN ---
Progress Note: A&P Assessment and Plan (1) Fall: Qualifiers: Encounter type: initial encounter Qualified Code(s): W19.XXXA - Unspecified fall, initial encounter Code(s): W19.XXXA - Unspecified fall, initial encounter Status: Acute Assessment and Plan: -----due to gait instability from untreated Parkinson's. patient's family is worried about her being at home since she lives alone. She was of assist x2 with therapy today. She may be a candidate for TRC or SNF. I think that she is rehab level and that she could improve with therapy. She says she does therapy at home already twice a week. (2) Hallucinations: Code(s): R44.3 - Hallucinations, unspecified Status: Acute Assessment and Plan: ----- could be due to Parkinson's or could be due to concussion from hitting her head during the fall. She is completely within normal limits today and she remembers hallucinating. I am going to hold off on antipsychotic therapy at this time. If she continues to have hallucinations as time goes on, may consider Seroquel. . (3) DVT (deep venous thrombosis): Qualifiers: Affected thrombotic vein of extremity: unspecified vein of extremity Chronicity: acute DVT location: lower extremity Laterality: left Qualified Code(s): I82.402 - Acute embolism and thrombosis of unspecified deep veins of left lower extremity Code(s): I82.409 - Acute embolism and thrombosis of unspecified deep veins of unspecified lower extremity Status: Acute Assessment and Plan: ----- History of DVT, uncertain if she is taking her anticoagulation. will check venous Doppler study to evaluate status of the patient's DVT. She is a high risk for anticoagulation. If it is below the knee she may consider getting serial ultrasounds to make sure it has not moved. She may consider IVC filter if it is above the knee. Will await results from the new Doppler. (4) Elevated liver enzymes: Code(s): R74.8 - Abnormal levels of other serum enzymes Status: Acute Assessment and Plan: -----appear chronic, will recheck with ammonia and hep panel tomorrow. Time Spent With Patient Time with patient: 25 - 35 minutes Subjective Date/time seen: 02/18/20 10:17 Interval history: Pt is a 69-year-old female here with increased falls and hallucinations. Patient was seen today and feels better. She states that she recalls refusing treatment and not cooperating because she had a long afternoon in the ER and she was exhausted. She says she does have a history of hallucinating but can't really tell me much about it. She says she has been falling but has a life alert. She usually walks with a walker at home and does relatively okay. She said she fell and hit her head yesterday but has not had any numbness tingling or weakness since then. She worked with physical therapy today and says she was able to walk around the room but she felt unsteady. She had a bowel movement today which was normal for her. She denies chest pain, shortness breath, fevers, chills, abdominal pain, nausea or vomiting. She is eating and drinking well. She sees Dr. grimes in [place] and next appointment is feb 27. Review of Systems Review of Systems: All systems reviewed & are unremarkable except as noted in HPI and below Exam Narrative: Exam Narrative: General: Well developed well nourished patient in NAD HEENT: normocephalic Neck: supple Neuro: Alert and oriented x4. no notable resting tremor. Cranial nerves 2-12 intact equal strength the upper lower extremities 5/5 CV:RRR with a very slight systolic murmur Resp: decreased breath sounds, no rhonchi or crackles Abd: Soft, non distended. No pain to palpation. Positive bowel sounds Extremities: some dependent swelling in both lower extremities. Negative Homans sign Objective Data Vital Signs Vital Signs: Vital Signs - 24 hr 02/17/20 13
[2020-02-18 14:00] VITALS: BP 117/60; PULSE 61; RESP 16; TEMP 36.6; O2SAT 96
[2020-02-18 18:00] VITALS: BP 109/53; PULSE 68; RESP 17; TEMP 36.6; O2SAT 95
[2020-02-18 20:00] VITALS: BP 124/63; PULSE 73; RESP 20; TEMP 36.8; O2SAT 98
[2020-02-18] MEDS: CITALOPRAM HYDROBROMIDE 20 MG TABLET 40 MG PO (21:29)
[2020-02-19] VITALS: BP 100/52; PULSE 50; RESP 18; TEMP 36.3; O2SAT 93
[2020-02-19 04:00] VITALS: BP 130/70; PULSE 65; RESP 20; TEMP 36.6; O2SAT 100
[2020-02-19] MEDS: ACETAMINOPHEN 325 MG TABLET 650 MG PO (06:04)
[2020-02-19] MEDS: LEVOTHYROXINE SODIUM 50 MCG TABLET PO (06:04)
[2020-02-19] MEDS: CARBIDOPA/LEVODOPA 25/100 MG TABLET 1 TABLET PO ×2 (08:28→12:27)
[2020-02-19] MEDS: CARBIDOPA/LEVODOPA 12.5/50 MG TABLET 1 TABLET PO ×2 (08:28→12:27)
[2020-02-19 08:59] LABS: Alanine Aminotransferase 7 U/L (4-35); Albumin Level 3.7 g/dL (3.5-5.1); Alkaline Phosphatase 86 U/L (38-126); Anion Gap 7 mmol/L (8-16); Aspartate Amino Transferase 25 U/L (14-36); Bilirubin,Total 0.9 mg/dL (0.2-1.3); Blood Urea Nitrogen 19 mg/dL (7-17); Carbon Dioxide 26 mmol/L (22-30); Chloride 103 mmol/L (98-107); Estimated CRCL calculation 68 ml/min; Estimated Glomerular Filt Rate > 60; Glucose 100 mg/dL (65-105); Potassium 3.6 mmol/L (3.4-5.0); Sodium 136 mmol/L (137-145)
[2020-02-19 09:01] LABS: Hematocrit 34.9 % (37.0-47.0); Hemoglobin 11.7 g/dL (12.0-15.0); Mean Corpuscular HGB Conc 33.5 g/dl (32-36); Mean Corpuscular Hemoglobin 31.6 pg (26-34); Mean Corpuscular Volume 94.3 fl (80-100); Mean Platelet Volume 11.4 fl (7.4-10.4); Platelet Count Result 208 k/mm3 (150-375); Red Cell Distribution Width 12.4 % (11.5-14.5)
--- NOTE | 2020-02-19 09:25 | PM.IMPN ---
Progress Note: A&P Assessment and Plan (1) Fall: Qualifiers: Encounter type: initial encounter Qualified Code(s): W19.XXXA - Unspecified fall, initial encounter Code(s): W19.XXXA - Unspecified fall, initial encounter Status: Acute Assessment and Plan: Secondary to gait instability from Parkinson's. She was of assist x2 with therapy 02/17. She follows with Dr. Schaffer for primary neurology. I had a long discussion with the patient at the bedside today regarding her goals of care. I was also able to talk with her granddaughter, Lisa, on the phone per the patient's request. The patient has expressed interest in hospice care as her Parkinson's disease continues to progress and she does not want to continue to pursue treatment or hospital care. I spoke with care coordination who will also speak with the patient and her family today. (2) Hallucinations: Code(s): R44.3 - Hallucinations, unspecified Status: Acute Assessment and Plan: This may be secondary to Parkinson's or due to concussion from hitting her head during the fall. She remembers hallucinating but reports no further episodes and her mental status is completely normal. Plan to hold off on antipsychotic therapy at this time. If hallucinations recur, consider Seroquel although she has expressed that she would like to consider hospice care. (3) DVT (deep venous thrombosis): Qualifiers: Affected thrombotic vein of extremity: unspecified vein of extremity Chronicity: acute DVT location: lower extremity Laterality: left Qualified Code(s): I82.402 - Acute embolism and thrombosis of unspecified deep veins of left lower extremity Code(s): I82.409 - Acute embolism and thrombosis of unspecified deep veins of unspecified lower extremity Status: Acute Assessment and Plan: The patient reports a hx of a left calf (PT and paired peroneal) DVT 01/16/20, uncertain if she is taking her anticoagulation. She is a high risk for anticoagulation. Venous doppler US was repeated 02/18/20 and revealed resolution of prior LLE DVT. Anticoagulation was discontinued due to high bleeding risk with recurrent falls. Plan to monitor for any new symptoms. Encourage ambulation. Apply SCDs. (4) Elevated liver enzymes: Code(s): R74.8 - Abnormal levels of other serum enzymes Status: Acute Assessment and Plan: Appears chronic. Hepatitis panel and ammonia were ordered and are pending. (5) Parkinson disease: Code(s): G20 - Parkinson's disease Status: Chronic Assessment and Plan: Continue carbidopa-levodopa. Continue follow-up with Dr. Schaffer outpatient 02/28/20. Subjective Date/time seen: 02/19/20 09:25 Interval history: Mrs. Tapia is a 69 y.o. female with PMH significant for Parkinson's disease with increased falls and prior hallucinations which have resolved. She has expressed interest in hospice care due to continued progression of her Parkinson's disease. She reports no further hallucinations. She continues to work with PT/OT. She denies dyspnea, chest pain, and cough. She denies nausea and vomiting. She reports a bowel movement earlier today which was regular for her. She has no urinary complaints. She is tolerating her diet well. She reports no further falls. Review of Systems Review of Systems: All systems reviewed & are unremarkable except as noted in HPI and below Exam Narrative: Exam Narrative: General: Very pleasant, well-developed, and well-nourished 69 y.o. female who is sitting in the chair at the bedside in no acute distress. HEENT: Normocephalic and atraumatic. EOMI. Oral mucosa moist. Neck: Supple without lymphadenopathy or masses. Cardiac: Regular rate and rhythm. S1 and S2 normal. 1/6 systolic murmur. Lungs: Effort normal. Lungs are clear to auscultation bilaterally. Abdomen: Normoactive bowel sounds. Abdomen soft, non-tender, and non-distended. Ex
[2020-02-19 09:40] LABS: Hepatitis B Surface Antigen Negative (Negative)
[2020-02-19 09:44] LABS: Ammonia < 9 umol/L (9-30)
[2020-02-19 09:45] LABS: HAV RESULT Negative (Negative); Hepatitis B Core IgM Result Negative (Negative)
[2020-02-19 09:52] VITALS: BP 123/94; PULSE 73; RESP 20; TEMP 36.2; O2SAT 99
[2020-02-19 10:05] LABS: Hepatitis C Virus Antibody Reactive (Negative)
[2020-02-19 13:26] VITALS: BP 159/75; PULSE 65; RESP 20; TEMP 36.4; O2SAT 98
--- NOTE | 2020-02-19 17:35 | PM.DS ---
DS: Admitting Diagnosis Admitting Diagnosis Admitting Diagnosis: fall, hallucination DS: Discharge Diagnosis Discharge Diagnosis (1) Fall: Qualifiers: Encounter type: initial encounter Qualified Code(s): W19.XXXA - Unspecified fall, initial encounter Code(s): W19.XXXA - Unspecified fall, initial encounter Status: Acute Assessment and Plan: Discharge Summary (Date of service 02/19/20): Mrs. Tapia is a 69 y.o. female with PMH significant for Parksinson's disease, depression, anxiety, below the knee DVT, and hypothyroidism who presented to the emergency department for the evaluation of a fall and hallucinations. She was reportedly not taking her medications as prescribed. Initial workup in the emergency department revealed WBC 4,500, Hb 11.3, Hct 34.3, sodium 138, potassium 3.6, chloride 103, CO2 29, BUN 25, Cr 0.8, calcium 9.2, troponin <0.012, BNP 216, head CT with no acute findings including no hemorrhage, infarction, or masses, CT cervical spine with moderate to severe cervical spondylosis and no acute fractures, CXR with mild left lung base atelectasis, and UA without evidence of UTI. She was admitted to the hospitalist service for possible placement as her family did not feel that she could take care of herself at home. Her falls were felt to be secondary to gait instability from Parkinson's. She follows with Dr. Schaffer for primary neurology. PT/OT were consulted and rehab was recommended. Venous doppler US was repeated due to hx of left below the knee DVT and revealed resolution. Anticoagulation was discontinued due to her fall risk. The patient and her family expressed that they would like to pursue hospice care as Mrs. Tapia did not want to continue to pursue treatment for her Parkinson's disease or continued hospital care. She expressed that she did not want to go to rehab and her goal was to be able to be home with her family. I spoke with care coordination who spoke with the patient and her family. They were able to meet with [facility] today and the patient and her family elected to proceed with home hospice. She was discharged in stable condition on the afternoon of 02/19/20. Medication adjustments will be per the hospice doctor and her neurologist. After discharge, her hepatis C antibody screening was positive. PCR is still pending. Hepatits panel was ordered due to elevated LFTs. I will reach the patient to notify her of this and she may follow-up with her PCP if she would like to pursue treatment pending final studies. (2) Hallucinations: Code(s): R44.3 - Hallucinations, unspecified Status: Resolved Assessment and Plan: Resolved. This may have been secondary to Parkinson's or due to concussion from hitting her head during the fall. She was able to recall the event. She is alert and oriented x4 with good insight and judgment today. (3) DVT (deep venous thrombosis): Qualifiers: Affected thrombotic vein of extremity: unspecified vein of extremity Chronicity: acute DVT location: lower extremity Laterality: left Qualified Code(s): I82.402 - Acute embolism and thrombosis of unspecified deep veins of left lower extremity Code(s): I82.409 - Acute embolism and thrombosis of unspecified deep veins of unspecified lower extremity Status: Resolved Assessment and Plan: The patient reports a hx of a left calf (PT and paired peroneal) DVT 01/16/20, uncertain if she is taking her anticoagulation. She is a high risk for anticoagulation. Venous doppler US was repeated 02/18/20 and revealed resolution of prior LLE DVT. Anticoagulation was discontinued due to high bleeding risk with recurrent falls. Recommend monitoring for any new bothersome symptoms. She requested to go home on hospice today. (4) Elevated liver enzymes: Code(s): R74.8 - Abnormal levels of other serum enzymes Status: Acute Assessment and Plan: Appears chronic. Hepatitis p
[2020-02-19 18:19] LABS: SARS-CoV-2 RNA PCR Negative
[2020-02-21 17:50] LABS: Hepatitis C RNA, Quant PCR <15 IU/mL
== END 2020-02-19 15:07 | disposition hospice, home (50) ==
LOC: ANHED 19:03 → ANH2MED 19:44
PROVIDERS: Emergency Medicine; Internal Medicine; Physician Assistant; Admitting Provider Family Medicine; Emergency Provider Emergency Medicine; PCP Physician Assistant; Visit Provider Physician Assistant
DX: R44.3 Hallucinations, unspecified (principal); Z20.828 Contact with and (suspected) exposure to other viral communicable diseases; W19.XXXA Unspecified fall, initial encounter; G20 Parkinson's disease; B19.20 Unspecified viral hepatitis C without hepatic coma; K59.09 Other constipation; E03.9 Hypothyroidism, unspecified; R60.9 Edema, unspecified; R74.8 Abnormal levels of other serum enzymes; R29.6 Repeated falls; Z91.14 Patient's other noncompliance with medication regimen; Z86.718 Personal history of other venous thrombosis and embolism; Z87.891 Personal history of nicotine dependence
CPT/HCPCS: 36415; 70450; 71045; 72125; 80048; 80074; 80076; 82140; 83880; 84484; 85025; 85027; 85610; 85730; 87522; 87635; 93005; 93971; 96372; 97116; 97161; 97165; 97535; 99285; A9270; C9803; G0378; J1650; U0003

== ENCOUNTER 2021-08-21 00:04 | HOS | payer OTHER, MEDICARE, MEDICAID, SELFPAY ==
--- OUTSIDE RECORDS SUMMARY | 2021-08-20 22:31 | XMS_ITS ---
:1950 Author Care Team Providers Name Role Phone [employer]IA [employer] Primary Care Provider [phone] C[employer]IA [employer]ING Referring Provider [phone] Allergies Code Code System Name Reaction Severity Status Onset 938192 RxNorm Vicodin ? ? Active ? Medications Name Status Start Date Stop Date ? ? amoxicillin 500 mg capsule Active ? Not a vailable TK 1 C PO Q 8 H FOR 10 DAYS atorvastatin 40 mg tablet Active ? Not av ailable carbidopa 25 mg-levodopa 100 mg tablet Active ? Not available TK 1 AND 06/27 TS PO QID cephalexin 500 mg capsule Active ? Not av ailable TK ONE C PO Q 8 H FOR 7 DAYS citalopram 20 mg tablet Active ? Not avai lable TK 1 T PO QD IN THE [place] citalopram 40 mg tablet Active ? Not avai lable TK 1 T PO QD IN THE [place] Fluad 2017- 65yr up(PF)45 mcg(15 mcgx3)/0.5 mL intramuscular s yringe Active ? Not available ADM 0.5ML IM UTD Fluad 2018- 65yr up(PF)45 mcg(15 mcgx3)/0.5 mL intramuscular s yringe Active ? Not available ADM 0.5ML IM UTD levothyroxine 50 mcg tablet Active ? Not available TK 1 T PO QAM FOR 30 DAYS Linzess 290 mcg capsule Active ? Not avai lable lorazepam 0.5 mg tablet Active ? Not avai lable TK 1 T PO BID methylprednisolone 4 mg tablets in a Completed ? 05/08/2017 dose pack naproxen 500 mg tablet Active ? Not avail able TK 1 T PO BID WC nitrofurantoin macrocrystal 100 mg Active ? Not available
--- OUTSIDE RECORDS SUMMARY | 2021-08-20 22:31 | XMS_ITS ---
:1950 Author Care Team Providers Name Role Phone DR. CELIA CLEANING Primary Care Provider [phone] DR. CELIA CLEANING Referring Provider [phone] Allergies Code Code System Name Reaction Severity Status Onset 843235 RxNorm Vicodin ? ? Active ? Medications Name Status Start Date Stop Date ? ? amoxicillin 500 mg capsule Completed ? 11/20 TK 1 C PO Q 8 H FOR 10 DAYS atorvastatin 40 mg tablet Completed ? 2020 azithromycin 250 mg tablet Active ? Not a vailable carbidopa 25 mg-levodopa 100 mg tablet Active ? Not available cephalexin 500 mg capsule Completed ? 2020 TK ONE C PO Q 8 H FOR 7 DAYS citalopram 20 mg tablet Completed ? 11/21/19 21 TK 1 T PO QD IN THE [place] citalopram 40 mg tablet Completed ? 11/21/19 21 TK 1 T PO QD IN THE [place] Fluad 65yr up(PF)45 mcg(15 Active ? Not available mcgx3)/0.5 mL intramuscular syringe Fluad 65yr up(PF)45 mcg(15 mcgx3)/0.5 mL intramuscular s yringe Active ? Not available ADM 0.5ML IM UTD fluconazole 150 mg tablet Active ? Not av ailable levothyroxine 50 mcg tablet Active ? Not available TAKE 1 TABLET BY MOUTH EVERY MORNING Linzess 290 mcg capsule Completed ? 11/21/19 21 lorazepam 0.5 mg tablet Completed ? 11/21/19 21 TK 1 T PO BID meclizine 12.5 mg tablet Completed ? 021 TK 1 T PO TID PRN methylprednisolone 4 mg tablets in a Completed ? 05/08/2017 dose pack
[2021-08-20 23:55] VITALS: BP 125/52; PULSE 57; RESP 18; TEMP 36.1; O2SAT 96; BMI 30.8
--- NOTE | 2021-08-21 00:40 | PC.NURSE ---
This patient, Shanti Tapia, was admitted to [facility] Surg Room 333-01. Patient/family oriented to hospital policies and general routines including ID bracelet, bed and alarms, visiting hours, pain management, procedures, bathroom and other care routines, personal items, smoking policy, room service/diet, and visiting hours. Information on how to activate the Rapid Response Team has been discussed. Patient/Family are encouraged to report perceived risks to care and to ask questions if they do not understand what they are told or what they should do.
[2021-08-21 01:53] LABS: Add Urine Microscopic? YES; Appearance Urine Clear (Clear); Bacteria Urine Trace /hpf; Bilirubin Urine Negative (Negative); Blood Urine Negative (Negative); Color Urine Yellow (Yellow); Glucose Urine UA Negative (Negative); Hyaline Casts Urine 15-19 /lpf; Ketones Urine Trace mg/dL (Negative); Leukocyte Esterase Ur 1+ LEU/UL (Negative); Mucus Urine Rare /lpf; Nitrate Urine Negative (Negative); Protein Urine Negative (Negative); RBC Urine 0-2 /hpf (0-2); Specific Grav Ur 1.019 (1.001-1.035); Squamous Epithelial Cell Urine Occasional /hpf (Few); Urobilinogen Urine Negative mg/dL (<2.0)
[2021-08-21 06:00] VITALS: BP 139/62; PULSE 57; RESP 18; TEMP 36.1; O2SAT 98
[2021-08-21] MEDS: LEVOTHYROXINE SODIUM 50 MCG TABLET PO (06:02)
[2021-08-21] MEDS: LINACLOTIDE 145 MCG CAPSULE 290 MCG PO (06:03)
[2021-08-21] MEDS: LORazepam (*CRX) 0.5 MG TABLET PO ×2 (06:03→10:25)
[2021-08-21] MEDS: CARBIDOPA/LEVODOPA 25/100 MG TABLET 2 TABLET PO ×4 (09:14→21:00)
[2021-08-21] MEDS: NAPROXEN 500 MG TABLET PO ×2 (09:15→17:51)
[2021-08-21] MEDS: TRIHEXYPHENIDYL HCL 2 MG TABLET PO ×2 (09:16→17:51)
[2021-08-21] MEDS: WATER, STERILE FOR INJECTION 10 ML VIAL XX (10:32)
[2021-08-21] MEDS: OLANZapine 10 MG INJ VIAL 2.5 MG IM ×2 (10:32→16:51)
[2021-08-21 14:00] VITALS: BP 134/71; PULSE 61; RESP 16; TEMP 36.9; O2SAT 98
[2021-08-21] MEDS: LORazepam (*CRX) 1 MG TABLET PO (16:45)
[2021-08-21] MEDS: QUEtiapine FUMARATE 25 MG TABLET 50 MG PO (17:53)
[2021-08-21] MEDS: traZODone HCL 50 MG TABLET PO (21:00)
[2021-08-21] MEDS: CITALOPRAM HYDROBROMIDE 20 MG TABLET 40 MG PO (21:00)
[2021-08-21 21:03] VITALS: BP 132/71; PULSE 63; RESP 18; TEMP 36.8; O2SAT 94
--- NOTE | 2021-08-21 21:15 | PM.IMHP ---
H&P: HPI History of Present Illness Date/Time: 08/21/21 21:15 Chief Complaint: uncontrolled confusion, agitation, falling Narrative: 70 y/o female with PD is on hospice for end-stage symptoms. On-call hospice physician was call to her home by family 08/20 PM. She was confused, hallucinating, falling. She lives alone and family was unable to stay with her. Keflex had been ordered 08/19 for possible UTI. Patient was admitted to inpatient for her safety, for control of agitation, and to plan placement. Hx obtained telephonically from hospice physician, Ana Paula, at bedside. Review of Systems Review of Systems: ROS unobtainable: Yes unobtainable due to medical condition PMFSH Past Medical History Medical History (Updated 08/21/21 @ 21:24 by Ruiz Austin MD) Chronic constipation DVT (deep venous thrombosis) leftperoneal and posterior tibial DVT 01/16/2020 Hypothyroidism Parkinson disease With chronic hallucinations Rhabdomyolysis December 2019 Surgical History Surgical History (Updated 02/17/20 @ 23:49 by Radha Cordoba DO) Hx of cholecystectomy 2002 Family History Family History Other Adopted Social History Social History (Updated 08/21/21 @ 21:19 by Ruiz Austin MD) Social History: The patient lives at home alone. She still drives and is independent with her ADLs. She is on disability secondary to Parkinson's disease. Her family history is unknown as she is adopted. She has 1 son who she no longer speaks to and 2 granddaughters with whom she still has contact. She designated her granddaughter, Nazia, as her surrogate decision maker and she wishes to be a DNR. Years smoked: 2 Smoking status: Former smoker Second hand tobacco smoke exposure: Yes Additional smoking assessment comments: She smoked 1 cigarette per day for 2 years, quit over 10 years ago. Alcohol intake: never Alcohol use details: Drinks alcohol 2-3 times per year. Substance use: never Substance use type: does not use Gender identity (if verbalized by the patient): Female Sexual Orientation (if Verbalized by the Patient): Straight or Heterosexual Spiritual care concerns: No Meds Home Medications and Allergies Home Medications Medication Instructions Recorded Confirmed Type acetaminophen [Pain Reliever 325 mg PO Q4H PRN 02/17/20 08/21/21 History (acetaminophen)] carbidopa-levodopa 2 tablet PO QID 02/17/20 08/21/21 History citalopram 40 mg PO HS 02/17/20 08/21/21 History levothyroxine 50 mcg PO DAILY 02/17/20 08/21/21 History meclizine 12.5 mg PO TID PRN 02/17/20 08/21/21 History naproxen 500 mg PO BID 02/17/20 08/21/21 History tramadol 50 mg PO Q4-5H PRN 02/17/20 08/21/21 History bisacodyl [Dulcolax (bisacodyl)] 5 mg PO EVERY OTHER DAY 08/21/21 08/21/21 History fexofenadine [Yomaira] 180 mg PO DAILY 08/21/21 08/21/21 History linaclotide [Linzess] 290 mcg PO DAILY 08/21/21 08/21/21 History lorazepam [Ativan] 0.5 mg PO Q4-5H PRN 08/21/21 08/21/21 History polyethylene glycol 3350 [Miralax] 17 g PO DAILY 08/21/21 08/21/21 History quetiapine [Seroquel] 50 mg PO QAM 08/21/21 08/21/21 History sennosides-docusate sodium 1 tab-cap PO BID 08/21/21 08/21/21 History [Senna-S] trazodone 50 mg PO HS 08/21/21 08/21/21 History trihexyphenidyl [Artane] 2 mg PO BID 08/21/21 08/21/21 History Allergies Allergy/AdvReac Type Severity Reaction Status Date / Time hydrocodone Allergy Unknown Itching Verified 02/17/20 13:36 Vital Signs Vital Signs - 24 hr 08/20/21 23:55 08/21/21 06:00 08/21/21 14:00 Temperature 97 F L 97 F L 98.4 F Pulse Rate 57 L 57 L 61 Respiratory Rate 18 18 16 Blood Pressure 125/52 L 139/62 134/71 Pulse Oximetry 96 98 98 08/21/21 21:03 Temperature 98.3 F Pulse Rate 63 Respiratory Rate 18 Blood Pressure 132/71 Pulse Oximetry 94 Exam Narrative: Alert. Restless. H&P: Results Labs Labs: Urine 08/21/21 Range/Units 01:31 U
[2021-08-22 05:28] VITALS: BP 122/67; PULSE 61; RESP 20; TEMP 36.4; O2SAT 95
[2021-08-22] MEDS: LINACLOTIDE 145 MCG CAPSULE 290 MCG PO (07:01)
[2021-08-22] MEDS: LEVOTHYROXINE SODIUM 50 MCG TABLET PO (07:02)
[2021-08-22] MEDS: CARBIDOPA/LEVODOPA 25/100 MG TABLET 2 TABLET PO ×2 (08:26→12:30)
[2021-08-22] MEDS: NAPROXEN 500 MG TABLET PO (08:27)
[2021-08-22] MEDS: TRIHEXYPHENIDYL HCL 2 MG TABLET PO (08:27)
[2021-08-22 14:00] VITALS: BP 129/86; PULSE 86; RESP 20; TEMP 36.2; O2SAT 95
--- NOTE | 2021-08-22 15:27 | PM.IMPN ---
Progress Note: A&P Assessment and Plan (1) Palliative care by specialist: Code(s): Z51.5 - Encounter for palliative care Status: Acute Assessment and Plan: Qualifies for inpatient hospice care due to uncontrolled agitation and hallucinations and safety concerns Check U/a Continue home regimen 08/21 added prn olanzapine 08/22 trial of medication reduction as some of her symptoms may be due to noncompliance with home regimen 08/22 discontinue anticholinergic drugs, reduce dopaminergic drugs, redcuce citalopram, schedule hs trazodone, quetiapine 50mg bid (2) Parkinson disease: Code(s): G20 - Parkinson's disease Status: Chronic Assessment and Plan: As above (3) Hypothyroidism: Qualifiers: Hypothyroidism type: unspecified Qualified Code(s): E03.9 - Hypothyroidism, unspecified Code(s): E03.9 - Hypothyroidism, unspecified Status: Chronic Assessment and Plan: Continue levothyroxine (4) Hallucination: Code(s): R44.3 - Hallucinations, unspecified Status: Resolved Assessment and Plan: Lewey body dementia vs adverse drug reaction Subjective Date/time seen: 08/22/21 15:27 Interval history: 08/22 visit: sleeping this afternoon. Comfortable. Review of Systems Review of Systems: ROS unobtainable: Yes unobtainable due to medical condition Exam Narrative: Sleeping. Occasional myoclonic jerks. No JVD Chest CTA. Heart RR. Abd BS+, soft, nontender. Extr no CCE MS no gross deformities. Neuro CN 3-12 symmetric to visual inspection Objective Data Vital Signs Vital Signs: Vital Signs - 24 hr 08/21/21 21:03 08/22/21 05:28 Temperature 98.3 F 97.6 F Pulse Rate 63 61 Respiratory Rate 18 20 Blood Pressure 132/71 122/67 Pulse Oximetry 94 95 Intake/Output Intake/Output: Intake & Output 08/19/21 08/20/21 08/21/21 08/22/21 23:59 23:59 23:59 23:59 Intake Total 780 590 Output Total 1223 325 Balance -445 265 Meds/Results Medications: Active Medications Generic Name Dose Route Start Last Admin Trade Name Freq PRN Reason Stop Dose Admin Acetaminophen 325 mg 08/21/21 00:58 Acetaminophen 325 Mg Tablet PO Q4H PRN Mild Pain (1-3) Acetaminophen 325 mg 08/22/21 15:20 Acetaminophen 325 Mg Tablet PO Q4H PRN Pain (Scale Score 1-3) Bisacodyl 5 mg 08/21/21 01:12 Bisacodyl 5 Mg Tablet Ec PO Q48HR PRN Constipation Bisacodyl 5 mg 08/22/21 15:20 Bisacodyl 5 Mg Tablet Ec PO EVERY OTHER DAY XENA Carbidopa/Levodopa 2 tablet 08/22/21 17:00 Carbidopa/Levodopa 25/100 Mg Tablet PO QID XENA Citalopram Hydrobromide 40 mg 08/21/21 21:00 08/21/21 21:00 Citalopram Hydrobromide 20 Mg Tablet PO 40 mg HS XENA Administration Levothyroxine Sodium 50 mcg 08/21/21 06:30 08/22/21 07:02 Levothyroxine Sodium 50 Mcg Tablet PO 50 mcg DAILY@0630 XENA Administration Levothyroxine Sodium 50 mcg 08/23/21 09:00 Levothyroxine Sodium 50 Mcg Tablet PO DAILY [facility] Linaclotide 290 mcg 08/21/21 06:30 08/22/21 07:01 Linaclotide 145 Mcg Capsule PO 290 mcg DAILY@0630 [facility] Administration Loratadine 10 mg 08/21/21 01:05 Loratadine 10 Mg Tablet PO DAILY PRN Allergic Symptoms Lorazepam 1 mg 08/21/21 11:09 08/21/21 16:45 Lorazepam (*Crx) 1 Mg Tablet PO 1 mg Q4H PRN Administration Anxiety Meclizine HCl 12.5 mg 08/21/21 01:20 Meclizine Hcl 12.5 Mg Tablet PO TID PRN Dizziness Miscellaneous Information 0 each 08/21/21 05:00 Please Clarify Priority Of Use For Constipation Medications. Bisacodyl, Senna-S, And Shirley XX 09/20/21 04:59 CLARIFY XENA Morphine Sulfate 5 mg 08/21/21 11:13 Morphine Sulfate Oral Conc Riya (*Crx) 10 Mg/0.5 Ml Syringe PO Q4H PRN Pain Rated 7-10 Olanzapine 2.5 mg 08/21/21 00:55 08/21/21 16:51 Olanzapine 10 Mg Inj Vial IM 2.5 mg Q2H PRN Administr
[2021-08-22] MEDS: QUEtiapine FUMARATE 25 MG TABLET 50 MG PO (17:03)
[2021-08-22] MEDS: CARBIDOPA/LEVODOPA 25/100 MG TABLET 1 TABLET PO ×2 (17:03→20:34)
[2021-08-22] MEDS: SENNA/DOCUSATE SODIUM TABLET 1 TAB PO (17:04)
[2021-08-22] MEDS: traZODone HCL 50 MG TABLET PO (20:34)
[2021-08-22] MEDS: SENNOSIDES 8.6 MG TABLET PO (20:34)
[2021-08-22] MEDS: CITALOPRAM HYDROBROMIDE 20 MG TABLET PO (20:34)
[2021-08-22 22:00] VITALS: BP 116/47; PULSE 58; RESP 20; TEMP 36.9; O2SAT 99
[2021-08-23] MEDS: LEVOTHYROXINE SODIUM 50 MCG TABLET PO (06:40)
[2021-08-23] MEDS: CARBIDOPA/LEVODOPA 25/100 MG TABLET 1 TABLET PO ×4 (09:15→20:59)
[2021-08-23] MEDS: BISACODYL 5 MG TABLET EC PO (09:15)
[2021-08-23] MEDS: polyethylene glycoL 3350 17 GM POWD.PACK PO (09:15)
[2021-08-23] MEDS: QUEtiapine FUMARATE 25 MG TABLET 50 MG PO ×2 (09:16→17:16)
[2021-08-23] MEDS: SENNA/DOCUSATE SODIUM TABLET 1 TAB PO ×2 (09:16→17:17)
[2021-08-23 14:00] VITALS: BP 127/64; PULSE 66; RESP 18; TEMP 36.6; O2SAT 97
[2021-08-23] MEDS: LORazepam (*CRX) 1 MG TABLET PO (15:05)
[2021-08-23] MEDS: MORPHINE SULFATE ORAL CONC SOL (*CRX) 10 MG/0.5 ML SYRINGE 5 MG PO (15:05)
--- NOTE | 2021-08-23 16:39 | PM.IMPN ---
Progress Note: A&P Assessment and Plan (1) Palliative care by specialist: Code(s): Z51.5 - Encounter for palliative care Status: Acute Assessment and Plan: Qualifies for inpatient hospice care due to uncontrolled agitation and hallucinations and safety concerns Check U/a Continue home regimen 08/21 added prn olanzapine 08/22 trial of medication reduction as some of her symptoms may be due to noncompliance with home regimen 08/22 discontinue anticholinergic drugs, reduce dopaminergic drugs, redcuce citalopram, schedule hs trazodone, quetiapine 50mg bid 08/23 doing well, so decrease quetiapine to 50mg q pm (2) Parkinson disease: Code(s): G20 - Parkinson's disease Status: Chronic Assessment and Plan: As above (3) Hypothyroidism: Qualifiers: Hypothyroidism type: unspecified Qualified Code(s): E03.9 - Hypothyroidism, unspecified Code(s): E03.9 - Hypothyroidism, unspecified Status: Chronic Assessment and Plan: Continue levothyroxine (4) Hallucination: Code(s): R44.3 - Hallucinations, unspecified Status: Resolved Assessment and Plan: Lewey body dementia vs adverse drug reaction Subjective Date/time seen: 08/23/21 16:39 Interval history: 08/23 visit: sleeping this afternoon. Comfortable. Ate a little. Back pain earlier was relieved by Roxanol 5mg. Review of Systems Review of Systems: ROS unobtainable: Yes unobtainable due to medical condition Exam Narrative: Sleeping. Occasional myoclonic jerks. No JVD Chest CTA. Heart RR. Abd BS+, soft, nontender. Extr no CCE MS no gross deformities. Neuro CN 3-12 symmetric to visual inspection Objective Data Vital Signs Vital Signs: Vital Signs - 24 hr 08/22/21 22:00 08/23/21 14:00 Temperature 98.5 F 97.8 F Pulse Rate 58 L 66 Respiratory Rate 20 18 Blood Pressure 116/47 L 127/64 Pulse Oximetry 99 97 Intake/Output Intake/Output: Intake & Output 08/20/21 08/21/21 08/22/21 08/23/21 23:59 23:59 23:59 23:59 Intake Total 780 2230 380 Output Total 7565 015 8269 Balance -445 1905 -720 Meds/Results Medications: Active Medications Generic Name Dose Route Start Last Admin Trade Name Freq PRN Reason Stop Dose Admin Acetaminophen 325 mg 08/22/21 15:20 Acetaminophen 325 Mg Tablet PO Q4H PRN Pain (Scale Score 1-3) Bisacodyl 5 mg 08/21/21 01:12 Bisacodyl 5 Mg Tablet Ec PO Q48HR PRN Constipation Bisacodyl 5 mg 08/23/21 09:00 08/23/21 09:15 Bisacodyl 5 Mg Tablet Ec PO 5 mg Q48H XENA Administration Carbidopa/Levodopa 1 tablet 08/22/21 17:00 08/23/21 11:55 Carbidopa/Levodopa 25/100 Mg Tablet PO 1 tablet 0800,1200,1700,2100 XENA Administration Citalopram Hydrobromide 20 mg 08/22/21 21:00 08/22/21 20:34 Citalopram Hydrobromide 20 Mg Tablet PO 20 mg HS XENA Administration Levothyroxine Sodium 50 mcg 08/21/21 06:30 08/23/21 06:40 Levothyroxine Sodium 50 Mcg Tablet PO 50 mcg DAILY@0630 XENA Administration Lorazepam 1 mg 08/21/21 11:09 08/23/21 15:05 Lorazepam (*Crx) 1 Mg Tablet PO 1 mg Q4H PRN Administration Anxiety Meclizine HCl 12.5 mg 08/21/21 01:20 Meclizine Hcl 12.5 Mg Tablet PO TID PRN Dizziness Morphine Sulfate 5 mg 08/21/21 11:13 08/23/21 15:05 Morphine Sulfate Oral Conc Riya (*Crx) 10 Mg/0.5 Ml Syringe PO 5 mg Q4H PRN Administration Pain Rated 7-10 Olanzapine 2.5 mg 08/21/21 00:55 08/21/21 16:51 Olanzapine 10 Mg Inj Vial IM 2.5 mg Q2H PRN Administration Agitation Polyethylene Glycol 17 gm 08/23/21 09:00 08/23/21 09:15 Polyethylene Glycol 3350 17 Gm Powd.Pack PO 17 gm DAILY XENA Administration Quetiapine Fumarate 50 mg 08/21/21 18:00 08/22/21 17:03 Quetiapine Fumarate 25 Mg Tablet PO 50 mg EVENING XENA Administration Quetiapine Fumarate 50 mg 08/23/21 09:00 08/23/21 09:16 Quetiapine Fumarate 25 Mg
[2021-08-23] MEDS: CITALOPRAM HYDROBROMIDE 20 MG TABLET PO (20:59)
[2021-08-23] MEDS: traZODone HCL 50 MG TABLET PO (20:59)
[2021-08-23] MEDS: SENNOSIDES 8.6 MG TABLET PO (21:00)
[2021-08-23 22:00] VITALS: BP 113/41; PULSE 60; RESP 16; TEMP 36.6; O2SAT 96
[2021-08-24] MEDS: LEVOTHYROXINE SODIUM 50 MCG TABLET PO (05:40)
[2021-08-24 06:00] VITALS: BP 119/59; PULSE 60; RESP 16; TEMP 36.6; O2SAT 97
[2021-08-24] MEDS: CARBIDOPA/LEVODOPA 25/100 MG TABLET 1 TABLET PO (09:11)
[2021-08-24] MEDS: ACETAMINOPHEN 325 MG TABLET PO (09:12)
[2021-08-24] MEDS: polyethylene glycoL 3350 17 GM POWD.PACK PO (09:12)
[2021-08-24] MEDS: LORazepam (*CRX) 1 MG TABLET PO (09:12)
--- NOTE | 2021-08-24 10:57 | PM.DS ---
DS: Admitting Diagnosis Discharge Date 08/24/2021 Admitting Diagnosis uncontrolled confusion and hallucinations DS: Discharge Diagnosis Discharge Diagnosis (1) Palliative care by specialist: Code(s): Z51.5 - Encounter for palliative care Status: Acute Assessment and Plan: Qualifies for inpatient hospice care due to uncontrolled agitation and hallucinations and safety concerns Check U/a Continue home regimen 08/21 added prn olanzapine 08/22 trial of medication reduction as some of her symptoms may be due to noncompliance with home regimen 08/22 discontinue anticholinergic drugs, reduce dopaminergic drugs, redcuce citalopram, schedule hs trazodone, quetiapine 50mg bid 08/23 doing well, so decrease quetiapine to 50mg q pm 08/24 Patient was advised by hospice staff and by her granddaughter that she would be safer in a NH but be insists on return home; [facility] will implement medication packaging to minimize risk, however it is unlikely that she will thrive while alone (2) Parkinson disease: Code(s): G20 - Parkinson's disease Status: Chronic Assessment and Plan: As above (3) Hypothyroidism: Qualifiers: Hypothyroidism type: unspecified Qualified Code(s): E03.9 - Hypothyroidism, unspecified Code(s): E03.9 - Hypothyroidism, unspecified Status: Chronic Assessment and Plan: Continue levothyroxine (4) Hallucination: Code(s): R44.3 - Hallucinations, unspecified Status: Resolved Assessment and Plan: Lewey body dementia vs adverse drug reaction DS: Summary Hospital Course Reason for hospitalization: uncontrolled confusion, hallucinations Hospital Course: Admitted to inpatient hospice service due to living alone with no family available for care and experiencing hallucinations, confusion, falling that rendered her living conditions unsafe. She was alert and oriented to person and somewhat to place. She was admitted to inpatient hospice service and following initial sedation, a trial of medication reduction was pursued. By day of dicharge, she was alert and oriented to person, place, and time and able to ambulate. Though hospice personnel and her daughter and granddaughter attempted to convince her to move into a intermediate for enhanced safety, she opted to return home. [facility] was to bubble pack her medications and implement daily visits immediately after discharge. Status at Discharge Functional status at discharge: independent ambulation Overall status at discharge: patient is back to baseline Time Spent with Patient Time attestation: Total time spent providing and/or coordinating discharge services: Time spent: Greater than 30 minutes Exam Narrative: Alert. NAD. Able to ambulate in room with hospice nurse with standby assist. Discharge Plan Discharge Discharging Clinician: Ruiz Austin Patient Disposition: Hospice - Home Activity: no straining and no driving Diet: regular Stand Alone Forms: General Discharge Information Discharge Medications: New bisacodyl [Laxative (bisacodyl)] 5 mg Tablet,Delayed Release (Dr/Ec) 5 mg PO DAILY PRN (Reason: Constipation) Qty: 30 RF: 0 carbidopa-levodopa [Sinemet] 25-100 mg Tablet 1 tablet PO 0800,1200,1700,2100 Qty: 60 RF: 0 sennosides [Senokot] 8.6 mg Tablet 8.6 mg PO HS Qty: 30 RF: 0 quetiapine [Seroquel] 25 mg Tablet 50 mg PO EVENING Qty: 14 RF: 0 Continued levothyroxine 50 mcg tablet 50 mcg PO DAILY RF: 0 trazodone 50 mg Tablet 50 mg PO HS RF: 0 lorazepam [Ativan] 0.5 mg Tablet 0.5 mg PO Q4-5H PRN (Reason: Anxiety) RF: 0 polyethylene glycol 3350 [Miralax] 17 gram/dose Powder 17 g PO DAILY RF: 0 Changed acetaminophen [Pain Reliever (acetaminophen)] 325 mg tablet 650 mg PO TID Qty: 0 RF: 0 citalopram 40 mg tablet 20 mg PO HS Qty: 0 RF: 0 Discontinued meclizine 12.5 mg tablet 12.5 mg PO TID PRN (Reason:
--- OUTSIDE RECORDS SUMMARY | 2021-08-25 10:47 | XMS_ITS ---
:1950 Author Care Team Providers Name Role Phone [employer] Primary Care Provider [phone] C[employer]IA [employer] Referring Provider [phone] Allergies Code Code System Name Reaction Severity Status Onset 394317 RxNorm Vicodin ? ? Active ? Medications [...] Not available ADM 0.5ML IM UTD Fluad 65yr up(PF)45 mcg(15 mcgx3)/0.5 mL intramuscular [...]
--- OUTSIDE RECORDS SUMMARY | 2021-08-25 10:47 | XMS_ITS ---
:1950 Author Care Team Providers Name Role Phone DR. CELIA CLEANING Primary Care Provider [phone] DR. CELIA CLEANING Referring Provider [phone] Allergies Code Code System Name Reaction Severity Status Onset 044003 RxNorm Vicodin ? ? Active ? Medications [...]
== END 2021-08-24 12:15 | disposition hospice, home (50) | DRG 951 ==
PROVIDERS: Admitting Provider Internal Medicine; PCP Physician Assistant; Visit Provider Internal Medicine
DX: Z51.5 Encounter for palliative care (principal); R44.2 Other hallucinations; F02.81 Dementia in other diseases classified elsewhere, unspecified severity, with behavioral disturbance; G31.83 Neurocognitive disorder with Lewy bodies; T50.995A Adverse effect of other drugs, medicaments and biological substances, initial encounter; G20 Parkinson's disease; E03.9 Hypothyroidism, unspecified; Z66 Do not resuscitate; Z91.19 Patient's noncompliance with other medical treatment and regimen; Z86.718 Personal history of other venous thrombosis and embolism; Z90.49 Acquired absence of other specified parts of digestive tract; Z87.891 Personal history of nicotine dependence
CPT/HCPCS: 81001; 87086; 87088; A9270

== ENCOUNTER 2022-09-13 10:57 | Emergency (ER) | payer OTHER, MEDICARE, MEDICAID, SELFPAY ==
--- NOTE | ~2022-09-13 | XR_ITS ---
AP view of the pelvis and AP and lateral views of the left hip Clinical history: Pain Findings: No acute fracture or dislocation is seen. Osseous alignment is anatomic. Bilateral hip and SI joint spaces are preserved. Soft tissues are unremarkable. Impression: No significant abnormality is seen. Reviewed, dictated and finalized at [facility]. Impression: No significant abnormality is seen.
--- NOTE | ~2022-09-13 | US_ITS ---
EXAMINATION: US venous doppler [facility] DATE: 09/13/2022 13:10 INDICATION: Bilateral lower limb edema TECHNIQUE: Molina scale images without and with compression and Doppler images of the bilateral lower e xtremity veins were obtained. COMPARISON: 02/18/2020 FINDINGS: The right common femoral vein, profunda femoral vein, femoral vein, popliteal vein, peroneal trunk, p osterior tibial veins, and greater saphenous vein are patent. The left common femoral vein, profunda femoral vein, femoral vein, popliteal vein, peroneal trunk, po sterior tibial veins, and greater saphenous vein are patent. IMPRESSION: 1. Patent bilateral lower extremity veins. No evidence of deep venous thrombosis. Reviewed, dictated and finalized at location [facility]. IMPRESSION: 1. Patent bilateral lower extremity veins. No evidence of deep venous thrombosi s.
[2022-09-13 11:02] VITALS: BP 148/76; PULSE 87; RESP 20; TEMP 37.2; O2SAT 97
[2022-09-13 11:54] VITALS: BP 138/68; PULSE 78; RESP 16; O2SAT 98
--- NOTE | 2022-09-13 12:16 | PC.NURSE ---
Spoke with Jerson about patient's hospice status. Asked by worker to update if patient were to be admitted. Call back [phone] for Madonna.
[2022-09-13 12:56] LABS: Basophils Absolute Auto 0.1 K/mm3 (0.0-0.1); Eosinophils Absolute Auto 0.2 K/mm3 (0-0.3); Eosinophils Percent Auto 2.9 % (0-4.4); Hematocrit 33.4 % (37.0-47.0); Hemoglobin 11.1 g/dL (12.0-15.0); Immature Granulocyte Absolute 0.01 K/mm3 (0.00-0.031); Immature Granulocyte Percent A 0.2 % (0-0.5); Lymphocytes Absolute Auto 1.44 K/mm3 (0.9-3.2); Lymphocytes Percent Auto 24.8 % (18.3-44.2); Mean Corpuscular HGB Conc 33.2 g/dl (32-36); Mean Corpuscular Hemoglobin 33.9 pg (26-34); Mean Corpuscular Volume 102.1 fl (80-100); Mean Platelet Volume 9.8 fl (7.4-10.4); Monocytes Absolute Auto 0.6 K/mm3 (0.1-0.6); Monocytes Percent Auto 9.6 % (2.6-8.5); Neutrophils Absolute Auto 3.6 K/mm3 (1.3-6.7); Neutrophils Percent Auto 61.5 % (45.5-73.1); Platelet Count Result 188 k/mm3 (150-375); Red Blood Count 3.27 M/mm3 (4.2-5.4); Red Cell Distribution Width 12.4 % (11.5-14.5); White Blood Count 5.8 K/mm3 (4.5-10.0)
--- NOTE | 2022-09-13 13:08 | ED.FALL ---
HPI - Fall General Chief Complaint: Fall Stated Complaint: fall x2 last night Time Seen by Provider: 09/13/22 12:02 History of Present Illness HPI Narrative: Patient is a 71-year-old female who presents ER for evaluation after having a couple falls over the last week. Last fall was last night while she was moving furniture around her home. Prior to that she had had a fall while she was looking for trash under her bed. Patient has Parkinson's and has difficulty ambulating. Each fall she had not been using her walker. She is currently on hospice due to her Parkinson's. She never struck her head or lost consciousness. She has been have some achiness in her left hip since the fall but is able to bear weight still. Patient also has increased edema over the last couple weeks in the bilateral lower extremities. Family concerned patient may have a DVT as she has had one previously. She is no longer on blood thinners. Related Data Home Medications Medication Instructions Recorded Confirmed levothyroxine 50 mcg tablet 50 mcg PO DAILY 02/17/20 08/21/21 lorazepam 0.5 mg tablet (Ativan) 0.5 mg PO Q4-5H PRN Anxiety 08/21/21 08/21/21 polyethylene glycol 3350 17 17 g PO DAILY 08/21/21 08/21/21 gram/dose oral powder (Miralax) trazodone 50 mg tablet 50 mg PO HS 08/21/21 08/21/21 Allergies Allergy/AdvReac Type Severity Reaction Status Date / Time hydrocodone Allergy Unknown Itching Verified 02/17/20 13:36 Review of Systems Review of Systems: All systems reviewed & are unremarkable except as noted in HPI and below Constitutional: Constitutional: Denies chills, Denies fatigue and Denies fever(s) ENT: Denies nasal congestion and Denies sore throat Cardiovascular: Cardiovascular: Denies chest pain and Denies rapid heart rate Respiratory: Respiratory: Denies cough, Denies dyspnea and Denies wheezing Musculoskeletal: Musculoskeletal: Denies arthralgias and Denies joint swelling Comments: Leg edema Integumentary/Breasts: Comments: Yeast rash to the skin folds of the abdomen and beneath the breasts. Neurologic: Denies syncope and Denies headache(s) Comments: Resting tremor due to Parkinson's. [facility] Past Medical History Medical History (Updated 03/21/23 @ 15:07 by Joey Carrion MD) Chronic constipation DVT (deep venous thrombosis) leftperoneal and posterior tibial DVT 01/16/2020 Hypothyroidism Parkinson disease With chronic hallucinations Rhabdomyolysis December 2019 Surgical History Surgical History (Updated 02/17/20 @ 23:49 by Radha Cordoba DO) Hx of cholecystectomy 2002 Family History Family History Other Adopted Social History Social History (Updated 08/21/21 @ 21:19 by Ruiz Austin MD) Social History: The patient lives at home alone. She still drives and is independent with her ADLs. She is on disability secondary to Parkinson's disease. Her family history is unknown as she is adopted. She has 1 son who she no longer speaks to and 2 granddaughters with whom she still has contact. She designated her granddaughter, Nazia, as her surrogate decision maker and she wishes to be a DNR. Years smoked: 2 Smoking status: Former smoker Second hand tobacco smoke exposure: Yes Additional smoking assessment comments: She smoked 1 cigarette per day for 2 years, quit over 10 years ago. Alcohol intake: never Alcohol use details: Drinks alcohol 2-3 times per year. Substance use: never Substance use type: does not use Living arrangements: alone Gender identity (if verbalized by the patient): Female Sexual Orientation (if Verbalized by the Patient): Straight or Heterosexual Spiritual care concerns: No Exam Narrative: GENERAL: Well-appearing, well-nourished, and in no acute distress. HEAD: Normocephalic, atraumatic. EYES: PERRL and EOMI. ENT: Mucous membranes moist. CHEST: Clear to auscultation. No respiratory distre
[2022-09-13 13:10] LABS: INR 1.1; Prothrombin Time 13.8 Seconds (11.1-14.7)
[2022-09-13 13:11] LABS: Anion Gap 5 mmol/L (8-16); Blood Urea Nitrogen 25 mg/dL (7-17); Calcium 9.1 mg/dL (8.4-10.2); Carbon Dioxide 26 mmol/L (22-30); Chloride 106 mmol/L (98-107); Estimated Glomerular Filt Rate > 60; Glucose 113 mg/dL (65-110); Potassium 3.4 mmol/L (3.4-5.0); Sodium 137 mmol/L (137-145)
[2022-09-13 13:16] LABS: NT Pro B Type Natriuretic Pept 245 pg/mL (19.9-100)
[2022-09-13] MEDS: traMADol HCL (*CRX) 50 MG TABLET PO (13:20)
[2022-09-13 13:35] VITALS: BP 134/88; PULSE 72; RESP 16; O2SAT 100
[2022-09-13 14:23] VITALS: BP 142/80; PULSE 72; RESP 16; O2SAT 98
[2022-09-13 15:17] VITALS: BP 144/72; PULSE 74; RESP 16; O2SAT 99
== END 2022-09-13 15:19 | disposition home or self-care (01) ==
PROVIDERS: Emergency Provider Emergency Medicine
DX: M25.552 Pain in left hip (principal); L30.4 Erythema intertrigo; B37.2 Candidiasis of skin and nail; G20 Parkinson's disease; R29.6 Repeated falls; Z86.718 Personal history of other venous thrombosis and embolism; K59.09 Other constipation; E03.9 Hypothyroidism, unspecified; Z87.891 Personal history of nicotine dependence
CPT/HCPCS: 36415; 73502; 80048; 83880; 85025; 85610; 85730; 93970; 99284; A9270

== ENCOUNTER 2022-09-13 20:43 | HOS | payer OTHER, MEDICARE, MEDICAID, SELFPAY ==
[2022-09-13 20:20] VITALS: BP 128/60; PULSE 69; RESP 16; TEMP 37.1; O2SAT 98
--- NOTE | 2022-09-13 20:30 | ADMGEN ---
This patient, Shanti Tapia, was admitted to [facility] Surg Room 333-01. Patient/family oriented to hospital policies and general routines including ID bracelet, bed and alarms, visiting hours, pain management, procedures, bathroom and other care routines, personal items, smoking policy, room service/diet, and visiting hours. Information on how to activate the Rapid Response Team has been discussed. Patient/Family are encouraged to report perceived risks to care and to ask questions if they do not understand what they are told or what they should do.
[2022-09-13 21:01] VITALS: BMI 36.9
--- NOTE | 2022-09-13 21:56 | PC.NURSE ---
Addendum entered by Mary Russ RN 09/13/22 22:38: As same family member was leaving, she loudly stated to the patient I hope you don't get murdered tonight . Original Note: Patient family member upset with staff for recommending use of bedpan or bedside commode for toileting r/t recent outpatient falls. Family stated abrasively that she will sign her out of here because this is demoralizing to her ; it was later overheard her state every patient has a right to fall .
[2022-09-13 22:38] LABS: Appearance Urine Clear (Clear); Bilirubin Urine Negative (Negative); Blood Urine Negative (Negative); Color Urine Yellow (Yellow); Glucose Urine UA Negative (Negative); Ketones Urine 1+ mg/dL (Negative); Leukocyte Esterase Ur Negative LEU/UL (Negative); Nitrate Urine Negative (Negative); Protein Urine Negative (Negative); Specific Grav Ur 1.022 (1.001-1.035); Urobilinogen Urine 0.2 mg/dL (<2.0); pH Urine 5.5 (5.0-9.0)
[2022-09-13] MEDS: CARBIDOPA/LEVODOPA 25/100 MG TABLET 2 TABLET PO (22:45)
[2022-09-13] MEDS: traZODone HCL 50 MG TABLET 100 MG PO (22:46)
[2022-09-13 22:52] LABS: Add Urine Microscopic? YES
[2022-09-14] MEDS: LEVOTHYROXINE SODIUM 50 MCG TABLET PO (05:49)
[2022-09-14 06:00] VITALS: BP 137/65; PULSE 61; RESP 14; TEMP 35.9; O2SAT 97
[2022-09-14] MEDS: BENZTROPINE MESYLATE 0.5 MG TABLET PO ×2 (08:48→17:03)
[2022-09-14] MEDS: SENNA/DOCUSATE SODIUM TABLET 2 TAB PO (08:48)
[2022-09-14] MEDS: CARBIDOPA/LEVODOPA 25/100 MG TABLET 2 TABLET PO ×4 (08:48→20:45)
[2022-09-14] MEDS: BISACODYL 5 MG TABLET EC PO (08:49)
[2022-09-14] MEDS: polyethylene glycoL 3350 17 GM POWD.PACK PO (08:49)
[2022-09-14] MEDS: CITALOPRAM HYDROBROMIDE 20 MG TABLET PO (08:49)
[2022-09-14] MEDS: ACETAMINOPHEN 325 MG TABLET 650 MG PO ×3 (08:49→17:02)
[2022-09-14] MEDS: FLUTICASONE PROPIONATE 0.05% NA SPR 16 GM BTL (*BKC) 2 SPRAY NASAL (08:49)
[2022-09-14 09:59] VITALS: O2SAT 96
--- NOTE | 2022-09-14 11:35 | PM.IMHP ---
H&P: HPI History of Present Illness Date/Time: 09/14/22 11:35 Chief Complaint: Emergency placement Narrative: 71 y/o F with PD and associated dementia is Ox2 but unable to care for herself. Short term memory is extremely poor. She lives alone and only family available to help her are two granddaughters, one of whom is POA for healthcare. They are unable to care for her due to their other reponsibilities. Mrs. Tapia fell and was in ED 09/13. XR was negative. She was discharged home. However, she is unsteady on her feet, confused, and intermittently agitated. After talking with her granddaughter, she agreed to hospitalization prior to placement. [facility] Past Medical History Medical History (Updated 09/14/22 @ 11:41 by Ruiz Austin MD) Chronic constipation DVT (deep venous thrombosis) leftperoneal and posterior tibial DVT 01/16/2020 Hypothyroidism Parkinson disease With chronic hallucinations Rhabdomyolysis December 2019 Surgical History Surgical History (Updated 02/17/20 @ 23:49 by Radha Cordoba DO) Hx of cholecystectomy 2002 Family History Family History Other Adopted Social History Social History (Updated 09/14/22 @ 11:40 by Ruiz Austin MD) Social History: The patient lives at home alone. Her family history is unknown as she is adopted. She has 1 son who she no longer speaks to and 2 granddaughters with whom she still has contact. Her granddaughter, Nazia, is her surrogate decision maker. Code status: DNR. Years smoked: 2 Smoking status: Former smoker Second hand tobacco smoke exposure: Yes Additional smoking assessment comments: She smoked 1 cigarette per day for 2 years, quit over 10 years ago. Alcohol intake: never Alcohol use details: Drinks alcohol 2-3 times per year. Substance use: never Substance use type: does not use Living arrangements: alone Occupation/Education: retired Gender identity (if verbalized by the patient): Female Sexual Orientation (if Verbalized by the Patient): Straight or Heterosexual Spiritual care concerns: No Meds Home Medications and Allergies Home Medications Medication Instructions Recorded Confirmed Type levothyroxine 50 mcg tablet 50 mcg PO DAILY 02/17/20 09/13/22 History lorazepam 0.5 mg tablet (Ativan) 1 mg PO Q4H PRN Anxiety 08/21/21 09/13/22 History polyethylene glycol 3350 17 17 g PO DAILY 08/21/21 09/13/22 History gram/dose oral powder (Miralax) trazodone 50 mg tablet 100 mg PO HS 08/21/21 09/13/22 History acetaminophen 325 mg tablet (Pain 650 mg PO TID #0 tabs 08/24/21 09/13/22 Rx Reliever (acetaminophen)) carbidopa 25 mg-levodopa 100 mg 1 tablet PO 0800,1200,1700,2100 08/24/21 09/13/22 Rx tablet (Sinemet) #60 tabs citalopram 40 mg tablet 20 mg PO HS #0 tabs 08/24/21 09/13/22 Rx quetiapine 25 mg tablet (Seroquel) 50 mg PO EVENING #14 tabs 08/24/21 09/13/22 Rx sennosides 8.6 mg tablet (Senokot) 8.6 mg PO HS #30 tabs 08/24/21 09/13/22 Rx Biofreeze 1 applic topical BID PRN knee pain 09/13/22 09/13/22 History benztropine 0.5 mg PO BID 09/13/22 09/13/22 History bisacodyl 5 mg tablet,delayed 5 mg PO EVERY OTHER DAY PRN 09/13/22 09/13/22 History release (Laxative (bisacodyl)) Constipation fluticasone propionate 50 2 spray intranasal DAILY 09/13/22 09/13/22 History mcg/actuation nasal spray,suspension ibuprofen 200 mg PO BID 09/13/22 09/13/22 History Allergies Allergy/AdvReac Type Severity Reaction Status Date / Time hydrocodone Allergy Unknown Itching Verified 02/17/20 13:36 Vital Signs Vital Signs - 24 hr 09/13/22 21:18 09/13/22 20:20 09/14/22 06:00 Temperature 98.8 F 96.7 F L Pulse Rate 69 61 Respiratory Rate 16 14 Blood Pressure 128/60 137/65 Pulse Oximetry 98 97 Oxygen Delivery Room Air 09/14/22 09:59 Temperature Pulse Rate Respiratory Rate Blood Pressure Pulse Oximetry 96 Oxygen Delivery Room Air Exam Narr
[2022-09-14 14:00] VITALS: BP 113/76; PULSE 71; RESP 15; TEMP 36.5; O2SAT 96
[2022-09-14] MEDS: QUEtiapine FUMARATE 25 MG TABLET 50 MG PO (17:03)
[2022-09-14 20:40] VITALS: BP 128/60; PULSE 59; RESP 16; TEMP 35.9; O2SAT 96
[2022-09-14] MEDS: SENNOSIDES 8.6 MG TABLET PO (20:45)
[2022-09-14] MEDS: traZODone HCL 50 MG TABLET 100 MG PO (20:45)
[2022-09-14] MEDS: SENNA/DOCUSATE SODIUM TABLET 1 TAB PO (20:46)
[2022-09-15] MEDS: LEVOTHYROXINE SODIUM 50 MCG TABLET PO (05:35)
[2022-09-15 06:00] VITALS: BP 157/81; PULSE 58; RESP 16; TEMP 36.1; O2SAT 98
[2022-09-15] MEDS: CITALOPRAM HYDROBROMIDE 20 MG TABLET PO (08:50)
[2022-09-15] MEDS: SENNA/DOCUSATE SODIUM TABLET 2 TAB PO (08:50)
[2022-09-15] MEDS: BENZTROPINE MESYLATE 0.5 MG TABLET PO (08:50)
[2022-09-15] MEDS: CARBIDOPA/LEVODOPA 25/100 MG TABLET 2 TABLET PO ×2 (08:50→13:16)
[2022-09-15] MEDS: ACETAMINOPHEN 325 MG TABLET 650 MG PO ×2 (08:50→13:17)
[2022-09-15] MEDS: polyethylene glycoL 3350 17 GM POWD.PACK PO (08:51)
[2022-09-15 14:58] VITALS: BP 113/74; PULSE 68; RESP 16; TEMP 36.6; O2SAT 98
--- NOTE | 2022-09-15 15:47 | P.DS_ITS ---
DS: Admitting Diagnosis Discharge Date 09/15/2022 Admitting Diagnosis Parkinson's disease with Parkinson related dementia DS: Discharge Diagnosis Discharge Diagnosis (1) Palliative care encounter: Code(s): Z51.5 - Encounter for palliative care Status: Acute Assessment and Plan: * Hospitalized on inpatient hospice service due to being on outpatient hospice service for PD with the development of care crisis situation requiring acute intervention * Continue home regimen * Placement in NH (2) Parkinson disease: Code(s): G20 - Parkinson's disease Status: Chronic (3) Parkinson's disease dementia: Code(s): G20 - Parkinson's disease; F02.80 - Dementia in other diseases classified elsewhere, unspecified severity, without behavioral disturbance, psychotic disturbance, mood disturbance, and anxiety Status: Acute DS: Summary Hospital Course Hospital Course: Admitted due to inability to care for herself, emergency placement. Home regimen continued. Uneventful overnight stay. Discharged to [place] in [facility]. Time Spent with Patient Time attestation: Total time spent providing and/or coordinating discharge services: Exam Narrative: Alert. NAD. Discharge Plan Discharge Discharging Clinician: Ruiz Austin Anticipated Discharge Date/Time: 09/15/22 14:52 Patient Disposition: Hospice - Medical Facility Activity: other - see discharge instructions Diet: as tolerated Discharge Instructions: Up with assist as tolerated Diet as tolerated Patient Instructions: Hospice Care (GEN), Fall Prevention for Older Adults (DC) Stand Alone Forms: General Discharge Information Discharge Medications: Continued levothyroxine 50 mcg tablet 50 mcg PO DAILY trazodone 50 mg Tablet 100 mg PO HS lorazepam [Ativan] 0.5 mg Tablet 1 mg PO Q4H PRN (Reason: Anxiety) polyethylene glycol 3350 [Miralax] 17 gram/dose Powder 17 g PO DAILY carbidopa-levodopa [Sinemet] 25-100 mg Tablet 1 tablet PO 0800,1200,1700,2100 Qty: 60 0RF sennosides [Senokot] 8.6 mg Tablet 8.6 mg PO HS Qty: 30 0RF Rx Instructions: Take 2 tabs PO everyday for constipation and 1 tab at HS quetiapine [Seroquel] 25 mg Tablet 50 mg PO EVENING Qty: 14 0RF acetaminophen [Pain Reliever (acetaminophen)] 325 mg tablet 650 mg PO TID Qty: 0 0RF citalopram 40 mg tablet 20 mg PO HS Qty: 0 0RF fluticasone propionate 50 mcg/actuation Mchenry,Suspension 2 spray INTRANASAL DAILY Biofreeze 1 applic topical BID PRN (Reason: knee pain) Rx Instructions: apply one application BID benztropine 0.5 mg PO BID ibuprofen 200 mg PO BID bisacodyl [Laxative (bisacodyl)] 5 mg tablet,delayed release (DR/EC) 5 mg PO EVERY OTHER DAY PRN (Reason: Constipation) Date of admission: 09/13/22 20:43 Primary Care Provider: UNKNOWN,DOCTOR Admitting Provider: Ruiz Austin Attending physician on admission: Ruiz Austin Condition: Terminal
[2022-09-15 16:09] LABS: EDCOVIDSCREEN Negative (Negative)
== END 2022-09-15 16:25 | disposition hospice, inpatient (51) | DRG 951 ==
PROVIDERS: Admitting Provider Internal Medicine; Visit Provider Internal Medicine
DX: Z51.5 Encounter for palliative care (principal); G20 Parkinson's disease; E03.9 Hypothyroidism, unspecified; F02.80 Dementia in other diseases classified elsewhere, unspecified severity, without behavioral disturbance, psychotic disturbance, mood disturbance, and anxiety; K59.09 Other constipation; Z86.718 Personal history of other venous thrombosis and embolism; Z90.49 Acquired absence of other specified parts of digestive tract; Z66 Do not resuscitate; Z87.891 Personal history of nicotine dependence; Z20.822 Contact with and (suspected) exposure to COVID-19
CPT/HCPCS: 81001; 87426; A9270; C9803